=== PATIENT | male | born 1950 | race Caucasian/White ===

== ENCOUNTER 2017-06-29 19:09 | Inpatient (IN) | payer OTHER ==
--- NOTE | 2017-06-29 19:19 | EDPHY ---
H & P Stated Complaint: Chest Pressure, SOB, Fatigue Time Seen by Provider: 06/29/17 19:19 HPI/ROS: HPI CHIEF COMPLAINT: Shortness of breath, dyspnea on exertion, PND, bilateral lower extremity swelling HISTORY OF PRESENT ILLNESS: Patient is a 67-year-old male, he has a history of aortic valve replacement, additionally he smokes a pack of tobacco per day, presents emergency room with shortness of breath bilateral lower extremity swelling, dyspnea on exertion, PND over the past 5 days. Progressively getting worse. He denies fever. Denies productive cough. He states when he goes to walk up stairs or walk longer than 50 ft he gets profoundly dyspneic. No pleuritic pain. No history of DVT or PE. No history of ACS. Patient denies any significant pain in his chest but does complain of some chest pressure intermittently. Past Medical History: Aortic valve. Tobacco use. Past Surgical History: Aortic valve replacement Social History: 1 pack per day. Denies other illicit drugs or alcohol. Family History: Noncontributory ROS REVIEW OF SYSTEMS: A comprehensive 10 point review of systems is otherwise negative aside from elements mentioned in the history of present illness. Exam Constitutional appears well nontoxic no acute distress, triage nursing summary reviewed, vital signs reviewed, awake/alert. Eyes normal conjunctivae and sclera, EOMI, PERRLA. HENT normal inspection, atraumatic, moist mucus membranes, no epistaxis, neck supple/ no meningismus, no raccoon eyes. Respiratory clear to auscultation bilaterally, normal breath sounds, no respiratory distress, no wheezing. Cardiovascular no murmur appreciated. rate normal, regular rhythm, no murmur, no edema, distal pulses normal. Gastrointestinal soft, non-tender, no rebound, no guarding, normal bowel sounds, no distension, no pulsatile mass. Genitourinary no CVA tenderness. Musculoskeletal bilateral lower extremity pitting edema to the knees, symmetrical, no midline vertebral tenderness, full range of motion, no calf swelling, no tenderness of extremities, no meningismus, good pulses, neurovascularly intact. Skin pink, warm, & dry, no rash, skin atraumatic. Neurologic awake, alert and oriented x 3, AAOx3, moves all 4 extremities equally, motor intact, sensory intact, CN II-XII intact, normal cerebellar, normal vision, normal speech. Psychiatric normal mood/affect. Heme/Lymph/Immune no lymphadenopathy. Differential diagnosis includes but is not limited to: ACS, atypical chest pain , pneumothorax, pneumonia, pulmonary embolism, aortic dissection, congestive heart failure, tumor, musculoskeletal pain, esophageal pain, GERD, peptic ulcer disease, pancreatitis Medical Decision Making: Plan for this patient full quality assurance monitor IV establishment obtain EKG, troponin, rule out acute coronary syndrome, low suspicion for congestive heart failure given symptoms. Check for PE. Re-evaluation: EKG interpretation by me on record in [employer] system. Impression time of EKG 1923, sinus rhythm rate of 89 right bundle-branch block present. Abnormal T -wave inversions V1 V2 V3 no ST elevation. When I compare this EKG to his old EKG dated 07/12/2013 is change. The right bundle-branch block is new. The T- wave abnormalities are new. There is no ST elevation on this EKG. Patient noted have a positive D-dimer in the setting of shortness of breath will proceed with CT angiogram of chest rule out PE. Additionally the BNP is acutely elevated consistent most likely heart failure. Will proceed with IV Lasix 40 mg. Troponin noted to be negative. Full-dose aspirin given. 2034: Patient's CT scan angiogram of the chest shows no evidence of PE but there is bilateral pleural effusions, lung nodules noted and cardiomegaly consistent with most likely decompensated heart failure. Updated the patient. I have ordered the patient IV Lasix. Patient need to be admitted to the hospitalist service for decompensated heart failure. 2035: Currently at this time patient is hemodynamically stable no acute distress. No chest pain. Updated the patient. Spoke with the hospitalist service agrees to admit the patient. Dr. Terrazas. Source: Patient - Personal History Current Tetanus Diphtheria and Acellular Pertussis (TDAP): Yes - Medical/Surgical History Hx Asthma: No Hx Chronic Respiratory Disease: No Hx Diabetes: No Hx Cardiac Disease: Yes Hx Renal Disease: No Hx Cirrhosis: No Hx Alcoholism: No Hx HIV/AIDS: No Hx Splenectomy or Spleen Trauma: No Other PMH: OPEN HEART 2009 AORTIC VALVE REPLACEMENT (ANIMAL VALVE), Anxiety, Chronic Back Pain - Social History Smoking Status: Current every day smoker Constitutional: Initial Vital Signs Temperature (C) 36.7 C 06/29/17 19:13 Heart Rate 90 06/29/17 19:13 Respiratory Rate 18 06/29/17 19:13 Blood Pressure 102/72 06/29/17 19:13 O2 Sat (%) 89 L 06/29/17 19:13 O2 Delivery Mode Room Air O2 (L/minute) 2 Allergies/Adverse Reactions: procaine [Procaine] Allergy (Severe, Verified 07/27/13 17:28) Other-Enter Comments Home Medications: Medication Instructions Recorded Ascorbic Acid [Vitamin C 500 mg 500 mg PO DAILY 07/12/13 (OTC)] Aspirin [Aspirin 81mg (OTC)] 81 mg PO DAILY 07/12/13 Herbals/Supplements -Info Only 1 ea PO DAILY 07/12/13 Multivitamins [Tab-A-Clotilde] 1 tab PO DAILY 07/12/13 Simvastatin [Zocor 20 mg (RX)] 40 mg PO HS 07/12/13 rOPINIRole HCL [Requip 2mg (RX)] 4 mg PO HS 07/12/13 clonazePAM [klonoPIN (*)] 1 mg PO TID 06/29/17 oxyCODONE HCL/ACETAMINOPHEN 1 each PO Q6 PRN 06/29/17 [Percocet 10-325 mg Tablet] Medical Decision Making - Data Points Laboratory Results: Laboratory Results 06/29/17 19:29 06/29/17 19:29 Medications Given: Aspirin (Aspirin) 81 mg PO DAILY [facility] Stop: 12/27/17 08:59 Last Admin: 07/01/17 09:05 Dose: 81 mg Atorvastatin Calcium (Lipitor) 10 mg PO DAILY [facility] Stop: 12/27/17 08:59 Last Admin: 07/01/17 09:05 Dose: 10 mg Enoxaparin Sodium (Lovenox) 40 mg SC DAILY [facility] Stop: 12/27/17 08:59 Last Admin: 07/01/17 07:59 Dose: Not Given Furosemide (Lasix Injection) 40 mg IVP BIDDIUR [facility] Stop: 12/27/17 14:59 Last Admin: 07/01/17 15:15 Dose: Not Given Ketorolac Tromethamine (Toradol) 15 mg IVP Q6HRS [facility] Stop: 07/05/17 11:59 Last Admin: 07/01/17 14:39 Dose: 15 mg Morphine Sulfate (Morphine Ir) 15 mg PO Q4HRS PRN PRN Reason: Pain, Severe Able to Take PO Stop: 07/10/17 10:27 Last Admin: 07/01/17 13:30 Dose: 15 mg Oxycodone/Acetaminophen (Percocet 5/325) 1 tab PO Q6HRS PRN PRN Reason: Pain, Severe Able to Take PO Stop: 07/10/17 00:00 Last Admin: 07/01/17 16:24 Dose: 1 tab Ropinirole HCl (Requip) 4 mg PO HS AVA Stop: 12/26/17 23:44 Last Admin: 06/30/17 21:43 Dose: 4 mg Discontinued Medications Aspirin Buffered (Aspirin Ec) 325 mg PO EDNOW ONE Stop: 06/29/17 19:54 Last Admin: 06/29/17 20:40 Dose: 325 mg Diazepam (Valium) 5 mg PO ONCALL ONE Stop: 07/01/17 06:01 Last Admin: 07/01/17 09:43 Dose: Not Given Diazepam (Valium) 5 mg PO ONCALL ONE Stop: 07/01/17 09:46 Last Admin: 07/01/17 09:44 Dose: Not Given Diphenhydramine HCl (Benadryl) 25 mg PO ONCALL ONE Stop: 07/01/17 06:01 Last Admin: 07/01/17 09:43 Dose: Not Given Diphenhydramine HCl (Benadryl) 25 mg PO ONCALL ONE Stop: 07/01/17 09:46 Last Admin: 07/01/17 09:57 Dose: 25 mg Famotidine (Pepcid) 20 mg PO ONCALL ONE Stop: 07/01/17 06:01 Last Admin: 07/01/17 09:43 Dose: Not Given Famotidine (Pepcid) 20 mg PO ONCALL ONE Stop: 07/01/17 09:46 Last Admin: 07/01/17 09:57 Dose: 20 mg Furosemide (Lasix Injection) 40 mg IVP EDNOW ONE Stop: 06/29/17 20:06 Last Admin: 06/29/17 20:40 Dose: 40 mg Furosemide (Lasix Injection) 20 mg IVP BID AVA Stop: 12/27/17 08:59 Last Admin: 06/30/17 10:25 Dose: 20 mg Sodium Chloride (Ns) 1,000 mls @ 0 mls/hr IV ONCALL ONE PRN Reason: TKO Stop: 07/01/17 06:01 Last Admin: 07/01/17 09:47 Dose: Not Given Departure - Departure Disposition: [facility] Inpatient Acute Clinical Impression: Acute decompensated heart failure, Lung nodule Condition: Good
--- NOTE | 2017-06-29 19:25 | CPEKG ---
Heart Rate: 89 RR Interval: 674 P-R Interval: 148 QRSD Interval: 146 QT Interval: 432 QTC Interval: 526 P [place]: 53 QRS [place]: 16 T Wave [place]: 92 EKG Severity - ABNORMAL ECG - EKG Impression: SINUS RHYTHM EKG Impression: PROBABLE LEFT ATRIAL ABNORMALITY EKG Impression: RIGHT BUNDLE BRANCH BLOCK Electronically Signed By: Chema Brandt 29-Jun-2017 23:44:44
[2017-06-29 19:37] LABS: PLATELET COUNT 151 10^3/uL (150-400)
[2017-06-29 19:47] LABS: INR 1.13 (0.83-1.16); PROTIME(PATIENT) 14.7 SEC (12.0-15.0)
[2017-06-29 19:48] LABS: CREATINE KINASE 160 IU/L (0-224)
[2017-06-29] MEDS ORDERED: ASPIRIN EC 325 MG TAB PO ONE (19:53)
[2017-06-29] MEDS ORDERED: FUROSEMIDE 40 MG/4 ML VIAL IVP ONE (20:05)
[2017-06-29] MEDS ORDERED: IOPAMIDOL (ISOVUE 370) 100 ML BTL IV ONE (20:09)
[2017-06-29] MEDS ORDERED: ACETAMINOPHEN 325 MG TAB PO PRN (22:18)
[2017-06-29] MEDS ORDERED: ONDANSETRON 4 MG/2 ML VIAL IVP PRN (22:18)
[2017-06-29] MEDS ORDERED: ONDANSETRON DISINTEGRATING 4 MG TAB PO PRN (22:18)
[2017-06-29] MEDS ORDERED: clonazePAM 1 MG TAB PO PRN (23:51)
[2017-06-30] MEDS: OXYCODONE/APAP 5/325 TAB PO PRN (00:16)
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
[2017-06-30 04:32] LABS: PLATELET COUNT 138 10^3/uL (150-400)
[2017-06-30] MEDS ORDERED: FUROSEMIDE 20 MG/2 ML VIAL IVP SCH ×3 (09:00→15:00)
[2017-06-30] MEDS: ASPIRIN 81 MG CHEWABLE TAB PO SCH (09:42)
[2017-06-30] MEDS: ATORVASTATIN CALCIUM 10 MG TAB PO SCH (09:42)
[2017-06-30] MEDS: ENOXAPARIN 40 MG/0.4 ML SYR SC SCH (09:43)
--- NOTE | 2017-06-30 10:29 | HOSPPROG ---
Hospitalist Progress Note Assessment/Plan: 67 yo M w remote aortic valve replacement here w acute chf chf: echo pending to elucidate details further concern for valve malfunction continue diuresis pulm nodule: follow up no prior films in our system back pain: chronic asking for morphine amenable to trial of toradol prn po morphine I made it clear I will not be prescribing this as outpt proph: lmwh dispo: inpt Subjective: tele: no events (interp by me). case d/w dr dobbs. cxr w acute chf (interp by me) Objective: Vital Signs Temp Pulse Resp BP Pulse Ox 36.6 C 75 18 91/59 L 83 L 06/30/17 08:29 06/30/17 08:29 06/30/17 08:29 06/30/17 08:29 06/30/17 10:10 Laboratory Results 06/30/17 03:28 06/30/17 03:28 06/29/17 06/30/17 07/01/17 05:59 05:59 05:59 Intake Total 80 Output Total 300 Balance -220 PT 14.7 SEC (12.0-15.0) 06/29/17 19:29 INR 1.13 (0.83-1.16) 06/29/17 19:29 - Physical Exam Constitutional: no apparent distress, not in pain Eyes: PERRL, anicteric sclera Ears, Nose, Mouth, Throat: moist mucous membranes, hearing normal Cardiovascular: regular rate and rhythym, no murmur, rub, or gallop, systolic murmur, edema Respiratory: no respiratory distress, other (crackles bottom third of lungs) Gastrointestinal: normoactive bowel sounds, soft, non-tender abdomen Genitourinary: no bladder fullness, No prado in urethra Skin: warm Musculoskeletal: full muscle strength Neurologic: AAOx3 Psychiatric: interacting appropriately ICD10 Worksheet Patient Problems: Problems Problem Status Onset Acute decompensated heart failure Acute Lung nodule Acute
--- NOTE | 2017-06-30 10:40 | PDMN ---
Medical Necessity Medical necessity: est los>2mn for acute CHF with 5 days of progressive fatigue , COOLEY, and LE edema; admit for IV diuresis, I&O, TTE,and tele; comorbid s/ p AVR, CAD s/p CABG, and chronic pain; per order and H&P 06/29/17
[2017-06-30] MEDS: KETOROLAC 15 MG/1 ML SDV IVP SCH ×2 (11:47→17:26)
--- NOTE | 2017-06-30 12:20 | ASMTCAGE ---
CAGE Do you feel you ought to Answers: No cut down on your drinking or drug use? Do people annoy you by Answers: Yes criticizing your drinking or drug use? Do you feel guilty about Answers: No your drinking or drug use? Do you drink or use drugs Answers: No first thing in the morning ([employer])? Additional Comments "couple" vodka tonics per day (2-4 oz of vodka per drink). Binge drinking once or twice a month. See case management note Date Signed: 06/30/2017 12:19 PM Electronically Signed By:Alta Dover RN
--- NOTE | 2017-06-30 12:28 | ECHO ---
[email or web address] [address] [address] Main: [phone] Fax: [email or web address] Echocardiogram Name: NADEEM SANTIAGO MR#: [id number] Study Date: 06/30/2017 Study Time: 06:35 AM Date of : 1950 Age: 67 year(s) Height: 177.8 cm (70 in.) Weight: 79.83 kg (176 lb.) BSA: 1.98 m2 Gender: Male Examination: Echo Indication: chf Image Quality: Adequate Contrast: Requested by: Truong Maria BP: 91 mmHg/59 mmHg Heart Rate: Rhythm: Indication: chf Procedure Staff Keyboard Action Assembler: Shreya Hightower RDCS Reading Physician: Jyoti Aguilar MD Requesting Provider: Conclusions: Normal size left ventricle. Mild to moderate LVH. Low normal left ventricular systolic function. EF is 52 %. Mild lateral wall hypokinesis. Normal size right ventricle. Normal RV function. The left atrium is moderately dilated. The right atrium is mildly dilated. Moderate mitral valve regurgitation is present. Bioprosthetic AVR is present. Mean gradient across the AVR is 80 mmHg; severe . Mild to moderate AR. Moderate tricuspid regurgitation is present. Right ventricular systolic pressure measures 53mmHg. Compared with 07/12/2013 LVH has progressed. LV systolic function is slightly lower. Lateral wall hypokinesis is now present. Severe bioprosthetic aortic stenosis is now present. Measurements: Chambers Valvular Assessment AV/MV Valvular Assessment TV/PV Normal Normal Normal Name Value Range Name Value Range Name Value Range Ao Ivanna (2D): 3.2 cm (1.4 cm-2.6 AV meanP mmHg ( - ) TR Vmax: 3.27 mm/s ( - ) cm) GELA (VTI): 0.5 cm ( - ) TR PGmax: 43 mmHg ( - ) IVSd (2D): 1.3 cm (0.6 cm-1.1 AR (PHT): 248 ms ( - ) syst. PAP: 53 mmHg ( - ) cm) MV E Vmax: 1.11 m/s ( - ) PV Vmax: 0.69 m/s (0.6 m/s-0.9 LVDd (2D): 5.3 cm (4.2 cm-5.9 MV A Vmax: 0.55 m/s ( - ) m/s) cm) MV E/A: 2.02 ( - ) PV PGmax: 2 mmHg ( - ) LVDs (2D): 4.2 cm (2.1 cm-4 cm) MV PHT: 0.046 s ( - ) MVA (PHT): 4.8 s ( - ) Patient: NADEEM SANTIAGO Study Date: 06/30/2017 Page 1 of 3 06:35 AM LVPWd (2D): 1.2 cm (0.6 cm-1 cm) LVOTd 2.0 cm 2.0 cm mm LVEF (BP): 52 % (>=55 %) RVDd(2D): 3.5 cm (1.9 cm-3.8 cmmm) Continued Measurements: Chambers Valvular Assessment AV/MV Valvular Assessment TV/PV Name Value Name Value Name Value LADs: 5.2 cm MV DecTime: 165 m/s CVP (est.): 10 mmHg LADs Lon.1 cm MV E' Septal: 0.05 m/s LA Area: 28.5 cm2 MV E/E' Septal: 21.50 LA Volume: 88 ml MV E/E' Lateral: 10.70 LA Volume Index: 44.4 ml/m2 MR ERO: 0.300 cm2 RA Area: 21.4 cm2 MR PISA radius: 9 mm MR Reg. Volume: 69 ml AR Vmax: 3.63 cm/s Additional Vessels Name Value Ao Ascendin.9 cm Inferior Vena Cava: 2.3 cm Findings: Left Ventricle: Normal size left ventricle. Mild to moderate LVH. Low normal left ventricular systolic function. EF is 52 %. Normal diastolic LV function. Mild lateral wall hypokinesis. Right Ventricle: Normal size right ventricle. Normal RV function. Left Atrium: The left atrium is moderately dilated. Right Atrium: The right atrium is mildly dilated. Mitral Valve: The mitral valve is normal in appearance. Moderate mitral valve regurgitation is present. No mitral stenosis is present. Aortic Valve: The prosthetic aortic valve function is restricted. The prosthetic aortic valve exhibits severely thickened cusps. The orifice motion of the prosthetic aortic valve is severely impaired. Severe prosthesis stenosis. mild to moderate prosthetic regurgitation. Bioprosthetic AVR is present. Mean gradient across the AVR is 80 mmHg; severe . Mild to moderate AR. Tricuspid Valve: The tricuspid valve is normal in appearance and function. Moderate tricuspid regurgitation is present. Right ventricular systolic pressure measures 53mmHg. Pulmonic Valve: The pulmonic valve is normal in appearance and function. There is no pulmonic regurgitation seen. Aorta: The aorta is normal. Normal size aortic root measuring 3.2 cm. Normal size ascending aorta measuring 2.9 cm. IVC: The IVC is dilated. Pericardium: No pericardial effusion. No pleural effusion. Patient: NADEEM SANTIAGO Study Date: 06/30/2017 Page 2 of 3 06:35 AM (No Signature Object) Patient: NADEEM SANTIAGO Study Date: 06/30/2017 Page 3 of 3 06:35 AM [id number]
--- NOTE | 2017-06-30 12:30 | ASMTCMCOM ---
CM Note CM Note Notes: 06/30/2017 Case Management Note Met w/ pt to complete the CAGE. Pt reports daughter feels his drinking is excessive but his sons do not. Pt feels 2 drinks a day are good for his heart. He refused resources for alcohol cessation stating that he drinks much less now than in the past and he keeps it in check. Pt lives with his girlfriend and 3 musicians. He is independent in ADL's. There are no case mangement d/c needs at this time. Transitional Care to follow. Case Management d/c poc: independent with follow up as directed. Case Management available if needs change. Date Signed: 06/30/2017 12:29 PM Electronically Signed By:Alta Dover RN
--- NOTE | 2017-06-30 15:31 | GCON ---
[f rep st] CONSULTATION CARDIOLOGY CONSULTATION DATE OF CONSULTATION: 06/30/2017 PRIMARY VOCAL MUSIC INSTRUCTOR: Nilo Alvarez MD CHIEF COMPLAINT: Aortic valve disease. HISTORY: The patient is a 67-year-old male with a history of bicuspid aortic valve. In 2009, he had a 23 mm bovine aortic valve bioprosthesis and repair of ascending aortic aneurysm with a 26 mm Hemas hield graft. This was with Dr. Manan Arnold at [facility]. He also has a history of tobacco abuse, reportedly quit 2 weeks ago, left upper lobe lung nodule, and dyslipidemia. He was admitted on June 29 with progressive dyspnea, weight gain, lower extremity edema, and chest pr essure. In the ER, he was found to be hypoxic and in florid heart failure. He has diuresed well ove rnight and feels quite a bit better this morning. He has not had syncope. He states that his heart has been racing. REVIEW OF SYSTEMS: A full 10-point review of systems is performed, is negative except that which is outlined in history of present illness. PAST MEDICAL HISTORY: 1. Bioprosthetic aortic valve replacement and ascending aortic aneurysm repair in 2011 for history o f bicuspid aortic valve. 2. Tobacco abuse. 3. Lung nodule. 4. Dyslipidemia. OUTPATIENT MEDICATIONS: Vitamin C, aspirin 81 mg daily, herbal supplements, Klonopin, multivitamin, Percocet, Requip, and simvastatin. SOCIAL HISTORY: The patient quit smoking 2 weeks ago. He drinks 2 alcoholic drinks nightly. He den ies ongoing drug use, but has a past history of cocaine and marijuana use. FAMILY HISTORY: There is coronary disease in his family. PHYSICAL EXAM: VITAL SIGNS: Blood pressure 116/66, heart rate 80, respiratory rate is 18, oxygen sa turation 91% on 2 L nasal cannula. He is afebrile. IN GENERAL: Well-appearing older male in no acut e distress. HEENT: Sclerae clear and free of jaundice. Mucous membranes are moist. CARDIOVASCULAR: JVP is approximately 12 cm water with positive hepatojugular reflux. Regular rate and rhythm with harshly peaking systolic ejection murmur heard throughout the precordium with radiation to the caroti ds. No gallop or rub. LUNGS: Rales at the right base. No wheezes or rhonchi. ABDOMEN: Soft, nont priscilla, nondistended, without bruits, masses, or hepatosplenomegaly. EXTREMITIES: Warm and well perf used. Stigmata of chronic venous stasis. Trace to 1+ bilateral ankle edema. NEURO: Alert and orie nted x3 without gross focal neurologic deficits. Appropriate mood and affect. LABORATORY DATA: White count 3.9, hematocrit 42, and platelets are 138, and MCV is 108.5. D-dimer 0 .74. INR 1.13. Sodium 141, potassium 3.7, chloride 102, bicarb 29, BUN 14, creatinine 0.9, glucose 102, calcium 8.3, phosphorus 5. BNP is 9580. LFTs are normal. Troponin is negative x1. EKG reviewed by me: Sinus rhythm. Left atrial abnormality. Right bundle branch block. Anterior T-w ave inversions. Chest x-ray reviewed by me shows CHF. Chest CT: No pulmonary embolism. A 1.2 cm left upper lobe nodule. Small bilateral pleural effusions . Anterior mediastinal fluid collection contiguous with sternotomy defect which is not healed. Echocardiogram reviewed by me: Low normal LV systolic function with mild lateral hypokinesis. Criti evelyn bioprosthetic aortic stenosis with a mean gradient across the bioprosthetic aortic valve of 80 mm Hg. Mild to moderate aortic regurgitation. Moderate mitral regurgitation and moderate tricuspid reg urgitation with estimated pulmonary pressure 53 mmHg. ASSESSMENT AND PLAN: A 67-year-old male with a history of bicuspid aortic valve status post bioprost hetic aortic valve and ascending aortic aneurysm repair in 2009. He is now admitted with heart failu re and found to have severe bioprosthetic aortic stenosis as well as moderate mitral regurgitation an d tricuspid regurgitation. He is clinically improved with intravenous diuresis. 1. Aortic valve disease: He appears to have degeneration of his bioprosthetic aortic valve. No cli nical evidence of endocarditis. Will ask Dr. Davey Bello to consult about redo aortic valve placemen t. Would be concerned about the fact that his sternotomy is not healed. If he is not a surgical can didate, will discuss with Dr. Acosta about his candidacy for transcatheter aortic valve replacement. Continue intravenous diuresis, but avoid intravenous diuresis in the setting of his aortic stenosis . 2. Lung nodule: The patient reports that he has had a lung nodule for quite some time. However, gi jeanette his tobacco history, this would be concerning for malignancy. This will require further evaluatio n. 3. History of tobacco abuse: Patient reports quitting about 2 weeks ago. 4. Dyslipidemia: Continue statin. Thank you for allowing us to participate in Mr. Arguello' care. Will follow with you. /[id number]/MODL
[2017-06-30] MEDS: FUROSEMIDE 40 MG/4 ML VIAL IVP SCH (16:04)
[2017-06-30] MEDS ORDERED: FAMOTIDINE 20 MG TAB PO ONE (16:50)
[2017-06-30] MEDS ORDERED: DIAZEPAM 5 MG TAB PO ONE (16:50)
[2017-06-30] MEDS ORDERED: diphenhydrAMINE 25 MG CAP PO ONE (16:50)
[2017-06-30] MEDS ORDERED: NS 1,000 ML IV ONE (16:50)
[2017-06-30] MEDS ORDERED: NS 1,000 ML IV SCH (17:00)
[2017-07-01] MEDS: KETOROLAC 15 MG/1 ML SDV IVP SCH ×4 (00:22→17:36)
[2017-07-01 04:54] LABS: PLATELET COUNT 141 10^3/uL (150-400)
[2017-07-01 04:56] LABS: INR 1.12 (0.83-1.16); PROTIME(PATIENT) 14.6 SEC (12.0-15.0)
[2017-07-01] MEDS ORDERED: DIAZEPAM 5 MG TAB PO ONE ×2 (06:00→09:45)
[2017-07-01] MEDS ORDERED: diphenhydrAMINE 25 MG CAP PO ONE ×2 (06:00→09:45)
[2017-07-01] MEDS ORDERED: FAMOTIDINE 20 MG TAB PO ONE ×2 (06:00→09:45)
[2017-07-01] MEDS ORDERED: NS 1,000 ML IV ONE (06:00)
[2017-07-01] MEDS: ENOXAPARIN 40 MG/0.4 ML SYR SC SCH (07:59)
[2017-07-01] MEDS: ASPIRIN 81 MG CHEWABLE TAB PO SCH (09:05)
[2017-07-01] MEDS: ATORVASTATIN CALCIUM 10 MG TAB PO SCH (09:05)
[2017-07-01] MEDS: FUROSEMIDE 40 MG/4 ML VIAL IVP SCH ×2 (09:15→15:15)
--- NOTE | 2017-07-01 10:39 | PDANEPAE ---
ANE Past Medical History - Pulmonary History Hx Oxygen in Use at Home: No Hx Sleep Apnea: No - Endocrine History Hx Diabetes: No - Chronic Pain History Chronic Pain: Yes ANE Review of Systems Review of Systems: ANE Patient History - Allergies Allergies/Adverse Reactions: procaine [Procaine] Allergy (Severe, Verified 07/27/13 17:28) Other-Enter Comments - Home Medications Home Medications: Ascorbic Acid [Vitamin C 500 mg (OTC)] 500 mg PO DAILY 07/12/13 [Last Taken ] Aspirin [Aspirin 81mg (OTC)] 81 mg PO DAILY 07/12/13 [Last Taken 06/29/17] Herbals/Supplements -Info Only 1 ea PO DAILY 07/12/13 [Last Taken 07/11/13] Multivitamins [Tab-A-Clotilde] 1 tab PO DAILY 07/12/13 [Last Taken 07/11/13] Simvastatin [Zocor 20 mg (RX)] 40 mg PO HS 07/12/13 [Last Taken 06/28/17] rOPINIRole HCL [Requip 2mg (RX)] 4 mg PO HS 07/12/13 [Last Taken 06/28/17] clonazePAM [klonoPIN (*)] 1 mg PO TID 06/29/17 [Last Taken 06/29/17 07:00] oxyCODONE HCL/ACETAMINOPHEN [Percocet 10-325 mg Tablet] 1 each PO Q6 PRN [Last Taken 06/28/17] - Smoking Hx Smoking Status: Current every day smoker ANE Labs/Vital Signs - Labs Result Diagrams: 07/01/17 03:55 07/01/17 03:55 - Vital Signs Blood Pressure: 82/61 Heart Rate: 84 Respiratory Rate: 15 O2 Sat (%): 87 Height: 177.8 cm Weight: 77.3 kg ANE Physical Exam - Airway Neck exam: FROM Mallampati Score: Class 2 Mouth exam: normal dental/mouth exam - Pulmonary Pulmonary: no respiratory distress - Cardiovascular Cardiovascular: regular rate and rhythym - ASA Status ASA Status: II ANE Anesthesia Plan Total IV Anesthesia: Yes
[2017-07-01] MEDS ORDERED: fentaNYL 100 MCG/2 ML INJ ONE ×2 (10:44→11:03)
[2017-07-01] MEDS ORDERED: PROPOFOL 200 MG/20 ML VIAL ONE (10:44)
[2017-07-01] MEDS ORDERED: LIDOCAINE 2% 5 ML SDV ONE (10:45)
--- NOTE | 2017-07-01 10:49 | PDHPUP ---
History & Physical Update H&P update statement: This history and physical update is based on an assessment of the patient which was completed after admission or registration (within 24 hours), but prior to the surgery/procedure. H&P update: H&P reviewed & patient examined, no change in patient's condition since H&P completed (Please refer to my consult note dated 06/30/2017)
[2017-07-01] MEDS ORDERED: LIDOCAINE 1% 300 MG/30 ML SDV ONE (11:02)
[2017-07-01] MEDS ORDERED: IOPAMIDOL (ISOVUE-370) 150 ML BTL IV ONE (11:03)
[2017-07-01] MEDS ORDERED: MIDAZOLAM 2 MG/2 ML VIAL ONE (11:03)
[2017-07-01] MEDS ORDERED: ATROPINE SULFATE 1 MG/10 ML SYR ONE (11:09)
[2017-07-01] MEDS ORDERED: NALOXONE HCL 0.4 MG/ML INJ IVP PRN (11:28)
[2017-07-01] MEDS ORDERED: ALBUTEROL 3 ML DEYVIAL IH PRN (11:28)
--- NOTE | 2017-07-01 11:29 | POSTANESTH ---
Post Anesthetic Evaluation Cardiovascular Status: Similar to Pre-Op Cond Respiratory Status: Similar to Pre-op Cond. Level of Consciousness/Mental Status: Mildly Sleepy, Arousable Pain Control: Adequate, Prn Tx Ordered Nausea/Vomiting Control: Adequate, Prn Tx Ordered Complications Possibly Related to Anesthesia: None Noted
[2017-07-01] MEDS ORDERED: ATROPINE SULFATE 1 MG/10 ML SYR IVP PRN (12:49)
--- NOTE | 2017-07-01 12:55 | PDDXCAT ---
Diagnostic Cath Note - . Date: 07/01/17 Nursing Education Consultant: Lauren Indication: other (Bioprosthetic aortic valve degeneration with critical aortic stenosis and heart failure. Pre procedural planning.) - Procedure Access: left groin Procedure: left heart catheterization, coronary angiography, right heart catheterization, other (Abdominal aortography) - Materials Left Heart Cath materials: JL4.0, pigtail, other (AL1) Right Heart Cath materials: PWP catheter - Findings-Left Heart Catheterization LM: Normal and bifurcates into the LAD and left circumflex LAD: The LAD reaches the apex. There are 2 diagonals. There is no flow- limiting disease in the LAD or its branches. LCX: 2 small obtuse marginals. No significant disease in the left circumflex or marginal branches. RCA: This vessel is dominant. No significant disease. LVEF: The severely degenerated bioprosthetic valve was not crossed. We did perform abdominal aortography showing minimal atherosclerotic disease in moderately large bilateral iliac vessels. - Findings-Right Heart Catheterization RA: RA pressure is 11 RV: 48/7 PA: 51/26 with a mean of 36 PAOP: 22 with V-wave to 29 AO: 98/52 CO: 5 liters/minute CI: 2.6 liters/minute per meter squared Complications: None Estimated blood loss: <50ml Closure method: manual pressure Assessment: No significant coronary disease in this right-dominant system. Severe aortic stenosis related to degeneration of the patient's bioprosthetic aortic valve. Moderate mitral regurgitation and [id number]-gh-[id number] tricuspid regurgitation. Mild pulmonary hypertension. Plan: Case discussed with Dr. Davey Bello and Dr. Hari Acosta. The patient seems to be an appropriate candidate for evaluation for TAVR. He will have the records it CT scans and carotid ultrasound today. He will require 6 hr of bedrest because he had a manual sheath pull. Would continue diuresis as blood pressure allows. Patient Problems: Problems Problem Status Onset Acute decompensated heart failure Acute Lung nodule Acute
[2017-07-01] MEDS ORDERED: IOPAMIDOL (ISOVUE 370) 100 ML BTL IV ONE (15:13)
--- NOTE | 2017-07-01 16:03 | GCON ---
[f rep st] CONSULTATION TAVR CONSULT. CHIEF COMPLAINT: Shortness of breath. HISTORY OF PRESENT ILLNESS: This is a 67-year-old male with history of prior bioprosthetic AVR and a scending aortic repair performed approximately 9 years ago. The patient had what appeared to be a 23 magna bioprosthetic AVR replacement. The patient was admitted to [facility] with acut e onset of shortness of breath. The patient was found to have critical bioprosthetic aortic valve de generation with critical stenosis across the valve. The patient was diuresed and has responded effec tively to diuresis. The patient, in his workup, did also have a CT scan of the chest, which did show an isolated lung nodule, as well as what appeared to be a seroma from his prior sternotomy. The patient is currently feeling better after aggressive diuresis and underwent cardiac catheterizati on today by Dr. Aguilar, which showed patent bilateral coronary arteries with patent aortoiliac femoral vessels. PAST MEDICAL HISTORY: Significant for prior bioprosthetic aortic valve replacement with ascending ao rtic repair. HOME MEDICATIONS: The patient is taking vitamin C and aspirin, herbal supplements, Klonopin, multivi tamins, Percocet, Requip, and simvastatin. SOCIAL HISTORY: Patient is a current smoker. Drinks 2 alcoholic drinks daily. Has had a history of cocaine and marijuana use but no current drug use. FAMILY HISTORY: Noncontributory. REVIEW OF SYSTEMS: Patient currently denies any vision changes. No headache. No palpitations. No neck pain. No jaw pain. No chest pain. No abdominal pain. No shortness of breath currently. No l ower extremity pain. No neurologic issues. PHYSICAL EXAMINATION: VITAL SIGNS: Patient is alert and afebrile. Blood pressure is currently 100/ 70 with a heart rate of 64, respirations 12, sat 95% on 2 L nasal cannula. HEENT: Pupils equal and reactive to light and accommodation. Extraocular movements intact. CARDIOVASCULAR: Regular rhythm, S1, S2. There is a 3/6 harsh systolic murmur heard throughout the precordium. LUNGS: Clear to aus cultation bilaterally. ABDOMEN: Soft, nontender. No guarding. EXTREMITIES: No clubbing, no cyano sis, no edema. NEUROLOGIC: Alert and oriented x3. LABORATORY VALUES: Currently show a white cell of 4.2, hemoglobin 14.1, hematocrit 41, platelet coun t of 141. Sodium 143, potassium 3.8, chloride 104, bicarb 31, BUN 21, creatinine 0.8. ASSESSMENT AND PLAN: Shortness of breath/heart failure/bioprosthetic aortic valve replacement degene ration. At this time, we have discussed this case extensively with Dr. Bello from CT Surgery, as wel l as Dr. Aguilar. The patient is very hesitant to undergo repeat open heart surgery if it can be avoide d. However, given his critical bioprosthetic AVR, I feel that an intervention would be needed at thi s point given his current seroma at his prior mediastinal site would potentially make him a hostile c hest to perform an open redo AVR. Dr. Bello and myself agree that TAVR cydzg-rc-iqtce would probably be best suited for the patient, given these aforementioned issues. We will have a second mandatory CT surgery consult first prior to moving forward with any TAVR procedure. I have explained the TAVR procedure to the patient, including describing his risks/possible complications including bleeding, s troke, infection, and possible , and the patient would like to proceed if he is a candidate. We will obtain CTs of the chest, abdomen, pelvis, as well as carotid ultrasound. Of note, the patient did have a lung nodule on his CT scan that was performed yesterday. This lung nodule will be evaluat ed thoroughly once we have addressed his aortic stenosis issues, which we hope to rectify within a we ek. /[id number]/MODL
[2017-07-01] MEDS: OXYCODONE/APAP 5/325 TAB PO PRN (16:24)
--- NOTE | 2017-07-01 16:24 | HOSPPROG ---
Hospitalist Progress Note Assessment/Plan: 67 yo M w remote aortic valve replacement here w acute chf acute systolic heart failure: secondary to valve degneration candidate for TAVR pulm nodule: this appears to be the same nodule from [address] will follow up w radiology 07/02 back pain: chronic asking for morphine amenable to trial of toradol prn po morphine I made it clear I will not be prescribing this as outpt proph: lmwh dispo: inpt Subjective: case d/w dr dobbs. cath w no flow limiting stenoses Objective: Vital Signs Temp Pulse Resp BP Pulse Ox 36.5 C 79 12 92/56 L 95 07/01/17 14:37 07/01/17 14:37 07/01/17 14:37 07/01/17 14:37 07/01/17 14:37 Laboratory Results 07/01/17 03:55 07/01/17 03:55 06/30/17 07/01/17 07/02/17 05:59 05:59 05:59 Intake Total 80 250 Output Total 300 1500 Balance -220 -1250 PT 14.6 SEC (12.0-15.0) 07/01/17 03:55 INR 1.12 (0.83-1.16) 07/01/17 03:55 - Physical Exam Constitutional: no apparent distress, appears nourished Eyes: PERRL, anicteric sclera Ears, Nose, Mouth, Throat: moist mucous membranes, hearing normal Cardiovascular: regular rate and rhythym, systolic murmur, tachycardia Respiratory: no respiratory distress, no rales or rhonchi Gastrointestinal: normoactive bowel sounds, soft, non-tender abdomen Genitourinary: no bladder fullness, No prado in urethra Skin: warm, normal color Musculoskeletal: full muscle strength Neurologic: AAOx3 ICD10 Worksheet Patient Problems: Problems Problem Status Onset Acute decompensated heart failure Acute Lung nodule Acute
--- NOTE | 2017-07-01 16:38 | ECHO ---
[email or web address] [address] [address] Main: [phone] Fax: Transesophageal Echocardiography Name: NADEEM SANTIAGO MR#: [id number] Study Date: 07/01/2017 Study Time: 09:02 AM Date of : 1950 Age: 67 year(s) Height: ( ) Weight: ( ) BSA: Gender: Male Examination: POLI Indication: Image Quality: Adequate Contrast: Requested by: Jyoti Aguilar Heart Rate: Rhythm: BP: / Procedure Staff Regulatory Process Manager: Shreya Hightower RDCS Reading Physician: Jyoti Aguilar MD Requesting Provider: POLI Exam Details Patient Consent: Risks, alternatives of procedure explained to patient, informed consent obtained. Conclusions: Normal size left ventricle. Normal global systolic LV function. The ejection fraction is estimated to be 50-55 %. No regional wall motion abnormality. The left atrium is moderately dilated. An agitated saline study was performed and was negative for intracardiac shunting. No thrombus in left appendage. The right atrium is mildly dilated. Moderate mitral valve regurgitation is present. The aortic valve is a bioprosthesis. The prosthetic aortic valve function is restricted. The prosthetic aortic valve exhibits severely thickened cusps. Severe prosthesis stenosis. mild to moderate prosthetic regurgitation. Moderate tricuspid regurgitation is present. Measurements: Chambers Valvular Assessment AV/MV Valvular Assessment TV/PV Normal Normal Normal Name Value Range Name Value Range Name Value Range EF Range: 50-55 % Additional Measurements: Patient: NADEEM SANTIAGO Study Date: 07/01/2017 Page 1 of 2 09:02 AM Valvular Assessment AV/MV Name Value MR ERO: 0.150 cm2 MR PISA radius: 6 mm MR Reg. Volume: 31 ml Findings: Left Ventricle: Normal size left ventricle. Normal global systolic LV function. The ejection fraction is estimated to be 50-55 %. No regional wall motion abnormality. Unable to assess diastolic dysfunction. Right Ventricle: Normal size right ventricle. Normal RV function. Left Atrium: The left atrium is moderately dilated. An agitated saline study was performed and was negative for intracardiac shunting. Left Atrial Appendage: No thrombus in left appendage. Right Atrium: The right atrium is mildly dilated. Mitral Valve: The mitral valve is normal in appearance and function. Moderate mitral valve regurgitation is present. No mitral stenosis is present. Aortic Valve: The aortic valve is a bioprosthesis. The prosthetic aortic valve function is restricted. The prosthetic aortic valve exhibits severely thickened cusps. The orifice motion of the prosthetic aortic valve is severely impaired. Severe prosthesis stenosis. mild to moderate prosthetic regurgitation. Tricuspid Valve: The tricuspid valve is normal in appearance and function. Moderate tricuspid regurgitation is present. Pulmonic Valve: The pulmonic valve is normal in appearance and function. There is no pulmonic regurgitation seen. Aorta: The aorta is normal. Pericardium: No pericardial effusion. No pleural effusion. l1n (No Signature Object) Patient: NADEEM SANTIAGO Study Date: 07/01/2017 Page 2 of 2 09:02 AM [id number]
--- NOTE | 2017-07-01 17:09 | GCON ---
[f rep st] CONSULTATION DATE OF CONSULTATION: 06/30/2017 IMPRESSION: 1. Critical prosthetic aortic stenosis with class 4 congestive heart failure. 2. At least moderate mitral insufficiency. 3. Moderate tricuspid insufficiency. 4. Chronic obstructive pulmonary disease. 5. 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 RECOMMENDATIONS: This gentleman has a rather complex picture. He underwent aortic valve replacement 9 years prior, now has severe prosthetic stenosis and a 23 mm bioprosthetic valve. We performed POLI to better define the significance of the mitral insufficiency and in fact it is moderate at most wit h moderate left atrial enlargement. The patient is adamantly opposed to repeat surgery and given his moderate mitral insufficiency and good ventricular function, I do not think it is unreasonable to of mickey him TAVR particularly since his aortic valve is 23 mm, which should give him a reasonable short a nd intermediate term result. Options otherwise are repeat sternotomy, replacing his aortic valve, re pair of his mitral and tricuspid. He also has an unconfirmed new mass in the left upper lobe which h as a 70% chance of being malignant. Given his cardiac status, I believe we should correct his cardia c function 1st. He would not tolerate any sort of diagnostic or therapeutic approach and I do not th ink needle biopsies or PET scans at this time are going to change what or how we approach him. He un derwent diagnostic left heart cath today and was shown to have no evidence of coronary disease and ag ain his ventricular function is preserved. This was discussed at length with the patient, Dr. Lauren grace nd Dr. Acosta who has agreed to participate and assist with the TAVR. CHIEF COMPLAINT: This is a 67-year-old gentleman, previous surgical AVR for bicuspid aortic stenosis , who now presents with weight gain, dyspnea on exertion and fatigue. He was noted to be in congesti ve heart failure. He was found to have high gradient across his prosthetic aortic valve. Please see separate echo. MEDICAL HISTORY: As stated. MEDICATIONS: On admission were ascorbic acid with aspirin, vitamins, simvastatin, lisinopril, clonaz epam, and oxycodone. SOCIAL HISTORY: He smokes at least 1-2 packs cigarettes for greater than 30 years. REVIEW OF SYSTEMS: Except for his dyspnea on exertion and fatigue, he is not currently complaining. PHYSICAL EXAMINATION: GENERAL: A slender 67-year-old gentleman, appears older than stated age. NEC K : Has transmitted bruits. HEART: Rate is regular with a murmur across the precordium. LUNGS: Sams ve basilar barfield and evidence of pleural effusion. ABDOMEN: Soft, nontender. Bowel sounds are acti ve. RECTAL AND GENITAL: Exam were deferred. Femoral pulses are 2+ and symmetrical. He has some 2+ peripheral edema and has responded nicely to diuretics. Please see chart for remainder of details. /[id number]/MODL
[2017-07-02] MEDS: KETOROLAC 15 MG/1 ML SDV IVP SCH ×3 (01:20→12:00)
[2017-07-02] MEDS: ATORVASTATIN CALCIUM 10 MG TAB PO SCH (08:11)
[2017-07-02] MEDS: ENOXAPARIN 40 MG/0.4 ML SYR SC SCH (08:11)
[2017-07-02] MEDS: ASPIRIN 81 MG CHEWABLE TAB PO SCH (08:11)
[2017-07-02 08:15] VITALS: BP 84/53
[2017-07-02] MEDS: FUROSEMIDE 40 MG/4 ML VIAL IVP SCH (09:01)
--- NOTE | 2017-07-02 12:29 | HOSPPROG ---
Hospitalist Progress Note Assessment/Plan: 67 yo M w remote aortic valve replacement here w acute chf acute systolic heart failure: secondary to valve degneration candidate for TAVR pulm nodule: stable from 2009. not cancer no further workup back pain: chronic asking for morphine amenable to trial of toradol prn po morphine I made it clear I will not be prescribing this as outpt proph: lmwh dispo: hometoday see dc summary > 30 minutes Subjective: case d/w dr dobbs Objective: Vital Signs Temp Pulse Resp BP Pulse Ox 36.7 C 85 18 84/53 L 77 L 07/02/17 08:14 07/02/17 08:14 07/02/17 08:14 07/02/17 08:14 07/02/17 08:39 Laboratory Results 07/01/17 03:55 07/01/17 03:55 07/01/17 07/02/17 07/03/17 05:59 05:59 05:59 Intake Total 250 1070 Output Total 1500 600 Balance -1250 470 PT 14.6 SEC (12.0-15.0) 07/01/17 03:55 INR 1.12 (0.83-1.16) 07/01/17 03:55 - Physical Exam Constitutional: no apparent distress, appears nourished Eyes: PERRL, anicteric sclera Ears, Nose, Mouth, Throat: moist mucous membranes, hearing normal Cardiovascular: regular rate and rhythym, no murmur, rub, or gallop, systolic murmur, edema Respiratory: no respiratory distress, no rales or rhonchi Gastrointestinal: normoactive bowel sounds Genitourinary: no bladder fullness Skin: warm, normal color Musculoskeletal: full muscle strength Neurologic: AAOx3 ICD10 Worksheet Patient Problems: Problems Problem Status Onset Acute decompensated heart failure Acute Lung nodule Acute
--- NOTE | 2017-07-02 12:31 | PDHOMEO2F ---
Home Oxygen Face to Face Home Orders: I certify that a physician or a nurse practitioner or physician's occupational therapy assistant has had a [id number] encounter with this patient on the date of this order due to the diagnosis listed, which relates to the primary reason the patient requires home oxygen. Alternative treatments have been tried, or considered, and deemed ineffective. It is anticipated that supplemental oxygen will result in improvement with treatment. Home oxygen qualifying diagnosis: congestive heart failure SpO2 on room air (%): 77 Frequency of home oxygen needed: continuous Home oxygen liters per minute: 2 Home oxygen delivery device: nasal cannula Concentrator: No E-tanks for mobility and back up: Yes If ordering portable O2, is the patient mobile in the home?: Yes I certify that, based on these findings, the home oxygen is medically necessary for this patient for the following length of time. Length of time home oxygen needed: 1 month
--- NOTE | 2017-07-02 13:52 | PDCARPN ---
Cardiology Progress Note Assessment/Plan: Assessment/plan: 67-year-old male with a bioprosthetic aortic valve replacement and ascending aortic aneurysm repair in 2009 for bicuspid aortic valve. 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 He has moderate mitral and moderate tricuspid regurgitation. Other history includes stable pulmonary nodule and tobacco abuse, recently quit. With he underwent POLI and coronary angiography on July 01 with no significant coronary disease. He was seen by Dr. Davey Bello and Dr. Acosta. Recommendations are for TAVR based on his surgical risk given that it would be a redo surgery. 1. Aortic stenosis related to degeneration of bioprosthetic aortic valve: Heart failure is improved but will not diurese further given his systolic blood pressures in the 80s. I explained to the patient that he is at risk for recurrent heart failure or even sudden . He understands this. He will be seen by Dr. Ness tomorrow in the office for a 2nd cardiac surgery opinion. He is tentatively scheduled for TAVR on July 06. 2. Pulmonary nodule: This has been stable over several years and does not require further evaluation. 3. Tobacco abuse: He recently quit and I encouraged him to remain abstinent. Patient is stable for discharge and will have close clinical follow-up as detailed above. Discussed in detail with Dr. Cyr, Dr. Bello, and Dr. Acosta. 07/02/17 13:52 Subjective: He is feeling quite a bit better. No dyspnea with slow walking. Still has persistent edema but it is improved compared with admission. He is not lightheaded. Reviewed/Discussed With: hospitalist Objective: Vital Signs (8 Hrs) Temp Pulse Resp BP Pulse Ox 07/02/17 12:00 67 07/02/17 08:39 77 L 07/02/17 08:14 36.7 C 85 18 84/53 L 92 Intake/Output (24 Hrs) 07/01/17 07/02/17 07/03/17 05:59 05:59 05:59 Intake Total 250 1070 Output Total 1500 600 Balance -1250 470 Intake: Oral (ml) 250 1070 IV Intake (ml) 0 Output: Urine (ml) 1500 600 Toilet 1500 600 Other: Weight 77.3 kg 78 kg Number of Voids Toilet 1 1 No acute distress. JVP 12 cm of water. Regular rate and rhythm with harsh systolic ejection murmur heard throughout the precordium. Lungs minimal rales bilaterally. 1+ bilateral ankle edema bilaterally Result Diagrams: 07/01/17 03:55 07/01/17 03:55 Telemetry: Sinus rhythm ICD10 Worksheet Patient Problems: Problems Problem Status Onset Acute decompensated heart failure Acute Lung nodule Acute
== END 2017-07-02 13:50 | disposition home or self-care (01) | DRG 286 ==
LOC: F2W 21:45 → OBSVTOIN 22:18
PROVIDERS: ADMIT Hospitalist; ATTEND Hospitalist
DX: T82.857A Stenosis of other cardiac prosthetic devices, implants and grafts, initial encounter (principal); T82.01XA Breakdown (mechanical) of heart valve prosthesis, initial encounter; I50.31 Acute diastolic (congestive) heart failure; R91.1 Solitary pulmonary nodule; I25.10 Atherosclerotic heart disease of native coronary artery without angina pectoris; M54.9 Dorsalgia, unspecified; E78.5 Hyperlipidemia, unspecified; F17.210 Nicotine dependence, cigarettes, uncomplicated; Z95.2 Presence of prosthetic heart valve; Z95.1 Presence of aortocoronary bypass graft
CPT/HCPCS: 96374; J0461; J1644; J1650; J1885; J1940; J2250; J2704; J3010; Q9967

== ENCOUNTER 2017-07-06 06:21 | Inpatient (IN) | payer OTHER, MEDICARE ==
[2017-07-06] MEDS ORDERED: ceFAZolin 2 GM/SWFI 2 GM/20 ML SYR IVP ONE (07:00)
[2017-07-06] MEDS ORDERED: IOPAMIDOL (ISOVUE-370) 150 ML BTL IV ONE (07:10)
[2017-07-06] MEDS ORDERED: MIDAZOLAM 2 MG/2 ML VIAL IVP ONE (07:15)
--- NOTE | 2017-07-06 07:18 | PDANEPAE ---
ANE History of Present Illness in bioprosthetic valve s/f TAVR ANE Past Medical History - Cardiovascular History Hx Hypertension: Yes Hx Arrhythmias: No Hx Chest Pain: No Hx Coronary Artery / Peripheral Vascular Disease: Yes Hx CHF / Valvular Disease: Yes - Pulmonary History Hx COPD: Yes Hx Oxygen in Use at Home: No Hx Sleep Apnea: No Pulmonary History Comment: was given O2 at D/C - Endocrine History Hx Diabetes: No - Chronic Pain History Chronic Pain: Yes ANE Review of Systems Review of Systems: - Exercise capacity METS (RN): 3 METS ANE Patient History - Allergies Allergies/Adverse Reactions: No Known Allergies Allergy (Unverified 07/06/17 07:08) - Home Medications Home medications: home medication list seen and reviewed Home Medications: Ascorbic Acid [Vitamin C 500 mg (*)] 500 mg PO DAILY 07/12/13 [Last Taken ] Aspirin [Aspirin 81mg (*)] 81 mg PO DAILY 07/12/13 [Last Taken 06/29/17] Herbals/Supplements -Info Only 1 ea PO DAILY 07/12/13 [Last Taken 07/11/13] Multivitamins [Multivitamin (*)] 1 tab PO DAILY 07/12/13 [Last Taken 07/11/13] Simvastatin [Zocor 20 mg] 40 mg PO HS 07/12/13 [Last Taken 06/28/17] rOPINIRole HCL [Requip 2mg (*)] 4 mg PO HS 07/12/13 [Last Taken 06/28/17] clonazePAM [klonoPIN (*)] 1 mg PO TID 06/29/17 [Last Taken 06/29/17 07:00] oxyCODONE HCL/ACETAMINOPHEN [Percocet 10-325 mg Tablet] 1 each PO Q6 PRN [Last Taken 06/28/17] - NPO status NPO Status: no food or drink >8 hours - Anes Hx Anes Hx: no prior problems - Smoking Hx Smoking Status: Current every day smoker - Alcohol Use Alcohol Use: Rarely ANE Labs/Vital Signs - Vital Signs Height: 177.8 cm Weight: 74.843 kg ANE Physical Exam - Airway Neck exam: FROM Mallampati Score: Class 2 Mouth exam: normal dental/mouth exam - Pulmonary Pulmonary: inspiratory crackles - Cardiovascular Cardiovascular: regular rate and rhythym - ASA Status ASA Status: III ANE Anesthesia Plan Anesthesia Plan: general endotracheal anesthesia
--- NOTE | 2017-07-06 07:24 | PDHPUP ---
History & Physical Update H&P update statement: This history and physical update is based on an assessment of the patient which was completed after admission or registration (within 24 hours), but prior to the surgery/procedure. H&P update: H&P reviewed & patient examined, no change in patient's condition since H&P completed
--- NOTE | 2017-07-06 07:24 | PDPROPOC ---
Sedation Plan of Care Sedation Plan of Care: mental status noted, patient educated of risks, benefits , alternatives, patient can tolerate sedation ASA Classification: ASA 2 Planned drugs: fentanyl, midazolam, other Mallampati Score: Class 2 Mallampati Reference Image: Patient passed 3-3-2 rule?: Yes
[2017-07-06] MEDS ORDERED: REMIFENTANIL HCL 1 MG VIAL ONE (07:29)
[2017-07-06] MEDS ORDERED: fentaNYL 100 MCG/2 ML INJ ONE (07:29)
[2017-07-06] MEDS ORDERED: PROPOFOL/EMULSION 500 MG/50 ML BOTTLE IV ONE (07:29)
[2017-07-06] MEDS ORDERED: LIDOCAINE 2% 100 MG/5 ML SYR ONE (07:31)
[2017-07-06] MEDS ORDERED: PHENYLEPHRINE HCL 100 MCG/ML SYR ONE (07:36)
[2017-07-06] MEDS ORDERED: LIDOCAINE HCL 160 MG/4 ML LTA KIT TP ONE (07:39)
[2017-07-06] MEDS ORDERED: HEPARIN 10,000 UNIT/10 ML MDV (1,000 UNIT/ML) ONE ×2 (08:27)
[2017-07-06] MEDS ORDERED: PROTAMINE SULFATE 50 MG/5 ML VIAL IVP ONE (09:10)
[2017-07-06] MEDS ORDERED: ONDANSETRON DISINTEGRATING 4 MG TAB PO PRN (09:40)
[2017-07-06] MEDS ORDERED: ATROPINE SULFATE 1 MG/10 ML SYR IVP PRN (09:40)
[2017-07-06] MEDS ORDERED: hydrALAZINE 20 MG/ML VIAL IVP PRN (09:40)
[2017-07-06] MEDS ORDERED: ONDANSETRON 4 MG/2 ML VIAL IVP PRN (09:40)
--- NOTE | 2017-07-06 10:38 | PDMN ---
Medical Necessity Medical necessity: [facility] IP only surgery; TAVR
[2017-07-06] MEDS: oxyCODONE IR 5 MG TAB PO PRN ×2 (11:03→20:49)
[2017-07-06] MEDS: HYDROmorphONE/DILAUDID 1 MG/ML INJ IVP PRN (11:58)
--- NOTE | 2017-07-06 12:38 | CPIP ---
[f rep st] INVASIVE CARDIAC PROCEDURE DATE OF PROCEDURE: 07/06/2017 INDICATION FOR PROCEDURE: Severe bioprosthetic aortic stenosis degeneration. CO-SURGEONS: Dr. Davey Bello, Dr. Jyoti Aguilar, Dr. Malclom Kauffman. PROCEDURE: 1. Nonselective left groin sheathogram with 8-[place]izen [place] sheath placement, left common femoral artery. 2. 6-[place] sheath, left common femoral vein with temporary pacemaker placed in right ventricle. 3. 6-[place] sheath, right femoral artery verified angiographically upsized to 14-[place] sheath after triple Perclose placements. 4. Placement of Medtronic Evolut-R 26 mm valve via the transfemoral route. 5. Left heart catheterization. 6. Aortic root angiography. HISTORY: Briefly, this is a 67-year-old male with history of aortic root repair and bioprosthetic ao rtic valve replacement approximately 9 years ago with Magna 26 mm valve. The patient was admitted fo r heart failure last week, was found to have severe bioprosthetic aortic valve degeneration with a va lve area of 0.5, peak gradient of over 80. Given these findings, patient consented for [id number] procedure with TAVR. INTERVENTION REPORT: After informed consent was obtained, patient brought to [facility], where the patient was electively intubated. POLI performed by Dr. Jyoti Aguilar. Patient was administered 2 g of Ancef pr ior to the case. A 8-[place] sheath in left common femoral artery verified angiographically. A 6-[place] sheath in left common femoral vein with temporary pacemaker placed in right ventricle. 6-[place]izen [place] sheath placed in r ight common femoral artery verified angiographically. This was then upsized to a 14-[place]izen [place] sheath af ter triple Perclose placements were placed. The valve was crossed with AL1 catheter, straight stiff Glidewire, switched out for a pigtail catheter, switched out for a Confida wire. At this time, the s norma was removed and attempts were made to place the valve; however, given the wire's thickness, the Medtronic CoreValve Evolut-R 26 mm valve could not traverse the valve area itself. The valve was re moved and replaced with a 14-[place] sheath, and a pigtail catheter was placed in LV, switched out for a long Lunderquist wire. The sheath was then removed and a Medtronic CoreValve Evolut-R 26 mm valve was placed successfully across the valve. Of note, the patient had received a total of 13,000 of he kalie during the case to maintain an ACT around 300. The valve was deployed at a pacing rate of 100 with the valve successfully deployed. We did have to reposition the valve twice to make sure of adeq uate depth; however, after the second repositioning and redeployment, the valve appeared to be in michelle quate positioning. The valve was deployed. There was no new perivalvular leak noted. Mitral regurg itation was stable. The valve area and gradient were much improved. The wire was pulled back. The right groin was closed with triple Perclose devices. The left groin was closed with 8-[place]izen [place] Angio-S eal. Venous sheath was closed with manual pressure. Patient tolerated procedure well with no compli cations. IMPRESSION: Successful placement of transcatheter aortic valve replacement in surgical aortic valve replacement with a Medtronic CoreValve Evolut-R 26 mm valve via the transfemoral route. PLAN: The patient will be admitted to ICU. Further orders following clinical course. /[id number]/MODL
--- NOTE | 2017-07-06 13:43 | GOP ---
[f rep st] OPERATIVE REPORT DATE OF OPERATION: 07/06/2017 SURGEON: Davey Bello DO PREOPERATIVE DIAGNOSIS: Prosthetic valve stenosis in the aortic position with small perivalvular jama k. POSTOPERATIVE DIAGNOSIS: Prosthetic valve stenosis in the aortic position with small perivalvular le ak. PROCEDURE PERFORMED: Right common femoral artery transcatheter aortic valve replacement with a 26 Ev olut R performed in conjunction with Dr. Acosta. FINDINGS: The patient was noted to high gradients across the prosthetic aortic valve placed 9 years prior, presenting with congestive heart failure. He was medically stabilized and consented for percu taneous valve replacement. DESCRIPTION OF PROCEDURE: He was brought to the operating room and intubated. Monitoring lines were placed. Femoral access and wire placement were performed by Dr. Acosta, with myself first assisting. We argenis daly the prosthesis in the right common femoral artery across the valve under fluoroscopic guidance, w ith initially partially deployed the valve, which was felt to be too deep on the noncoronary side. I t was repositioned and deployed, with excellent placement approximately 4-5 mm below the valvular davin shirley, with no intra-valvular regurgitation, but a small persistent perivalvular leak from the previous prosthesis. The patient remained hemodynamically stable. Dr. Acosta closed the femoral arteries with a Perclose . Doppler was intact to the right lower extremity and left lower extremity. He was returned to the recovery room in stable condition. CO-SURGEONS: 1. Davey Bello D.O. 2. Hari Acosta M.D. 3. Jyoti Aguilar M.D. /[id number]/[facility] [place]
--- NOTE | 2017-07-06 17:59 | POSTANESTH ---
Post Anesthetic Evaluation Cardiovascular Status: Normal, Stable Respiratory Status: Tx Decrease in SpO2 Level of Consciousness/Mental Status: Can Participate in Eval Pain Control: Adequate, Prn Tx Ordered Nausea/Vomiting Control: Adequate, Prn Tx Ordered Complications Possibly Related to Anesthesia: None Noted
[2017-07-06] MEDS: ATORVASTATIN CALCIUM 20 MG TAB PO SCH (20:49)
[2017-07-06] MEDS: clonazePAM 1 MG TAB PO SCH (20:49)
[2017-07-06] MEDS: IBUPROFEN 800 MG TAB PO PRN (20:49)
[2017-07-06] MEDS ORDERED: SIMVASTATIN 40 MG PO SCH (21:00)
[2017-07-07 05:59] LABS: INR 1.11 (0.83-1.16); PROTIME(PATIENT) 14.5 SEC (12.0-15.0)
[2017-07-07 06:12] LABS: PLATELET COUNT 107 10^3/uL (150-400)
--- NOTE | 2017-07-07 07:30 | PDCARPN ---
Cardiology Progress Note Chief Complaint: SOB Assessment/Plan: Assessment: s/p TAVR Plan: 07/07/17 07:29 Doing well OOB check echo transfer to PCU Subjective: doing well Reviewed/Discussed With: multidisciplinary team Time Spent with Patient: greater than 25 minutes Time Spent with Patient: Greater than 25 minutes spent on this patients care, greater than 50% of time spent counseling, educating, and coordinating care regarding the above mentioned plan. Objective: Vital Signs (8 Hrs) Temp Pulse Resp BP Pulse Ox 07/07/17 06:00 73 13 81/50 L 95 07/07/17 04:00 36.5 C 71 15 86/49 L 93 07/07/17 02:00 81 20 88/69 L 95 07/07/17 00:00 67 15 77/46 L 91 L Intake/Output (24 Hrs) 07/06/17 07/07/17 07/08/17 05:59 05:59 05:59 Intake Total 1140 Balance 1140 Intake: Oral (ml) 640 IV Intake (ml) 500 Other: Weight 74.843 kg Number of Voids Toilet 1 Result Diagrams: 07/07/17 05:20 07/07/17 05:20 - Physical Exam Constitutional: healthy appearing Eyes: PERRL Ears, Nose, Mouth, Throat: moist mucous membranes Cardiovascular: regular rate and rhythm Peripheral Pulses: 1+: femoral (R), femoral (L) Respiratory: clear to auscultate bilat Gastrointestinal: normoactive bowel sounds Genitourinary: no suprapubic tenderness Skin: no rashes Musculoskeletal: no muscular tenderness Neurologic: AAOx3 Psychiatric: cooperative Lymph, Heme, Immunologic: no lymphadenopathy ICD10 Worksheet Patient Problems: Problems Problem Status Onset Acute decompensated heart failure Acute Lung nodule Acute
[2017-07-07] MEDS: MULTIVITAMINS 1 EACH TAB PO SCH (08:16)
[2017-07-07] MEDS: ASCORBIC ACID 500 MG TAB PO SCH (08:16)
[2017-07-07] MEDS: ASPIRIN 81 MG CHEWABLE TAB PO SCH (08:17)
[2017-07-07] MEDS: clonazePAM 1 MG TAB PO SCH ×3 (08:17→21:38)
[2017-07-07] MEDS ORDERED: Herbals/Supplements -Info Only PO SCH (09:00)
--- NOTE | 2017-07-07 09:00 | CPEKG ---
Heart Rate: 81 RR Interval: 741 P-R Interval: 176 QRSD Interval: 154 QT Interval: 392 QTC Interval: 455 P [place]: 50 QRS [place]: 47 T Wave [place]: 152 EKG Severity - ABNORMAL ECG - EKG Impression: SINUS RHYTHM EKG Impression: PROBABLE LEFT ATRIAL ABNORMALITY EKG Impression: RIGHT BUNDLE BRANCH BLOCK EKG Impression: Diffuse T-wave inversions- consider benito-lateral ischemia Electronically Signed By: Hari Acosta 07-Jul-2017 11:16:55
--- NOTE | 2017-07-07 09:24 | ECHO ---
[email or web address] [address] [address] Main: [phone] Fax: Transthoracic Echocardiogram Name: NADEEM SANTIAGO MR#: [id number] Study Date: 07/07/2017 Study Time: 07:43 AM Date of : 1950 Age: 67 year(s) Height: 177.8 cm (70 in.) Weight: 74.84 kg (165 lb.) BSA: 1.92 m2 Gender: Male Examination: Echo Indication: Post TAVR Image Quality: Adequate Contrast: Requested by: Hari Acosta BP: 82 mmHg/48 mmHg Heart Rate: Rhythm: Indication: Post TAVR Procedure Staff Primary School Teacher Librarian: Shreya Hightower RDCS Reading Physician: Jayro Vaughn MD Requesting Provider: Conclusions: Normal size left ventricle. Concentric LV hypertrophy. Normal global systolic LV function. EF is 50 %. No regional wall motion abnormality. Normal diastolic LV function. Normal size right ventricle. Normal RV function. The left atrium is moderately dilated. The mitral valve is normal in appearance and function. Mild to moderate mitral regurgitation. No mitral stenosis is present. Post TAVR. There is a TAVR in place replacing a pre existing failed bioprosthetic aortic valve. The mean gradient for the TAVR is 23 mmhg and the peak gradient is 37 mmhg. The peak velocity is 3.0 m/s. There is a small perivalvular leak present along with a mild eccentric AI jet which was present before the TAVR procedure. The tricuspid valve is normal in appearance and function. Moderate tricuspid regurgitation is present. Right ventricular systolic pressure measures 49mmHg. There is no pulmonic regurgitation seen. No previous available Measurements: Chambers Valvular Assessment AV/MV Valvular Assessment TV/PV Normal Normal Normal Name Value Range Name Value Range Name Value Range Ao Ivanna (2D): 2.7 cm (1.4 cm-2.6 AV Vmax: 3.00 m/s (1 m/s-1.7 TR Vmax: 3.33 mm/s ( - ) cm) m/s) TR PGmax: 44 mmHg ( - ) Patient: NADEEM SANTIAGO Study Date: 07/07/2017 Page 1 of 3 07:43 AM IVSd (2D): 1.4 cm (0.6 cm-1.1 AV meanP mmHg ( - ) syst. PAP: 49 mmHg ( - ) cm) GELA (VTI): 0.8 cm ( - ) PV Vmax: 1.02 m/s (0.6 m/s-0.9 LVDd (2D): 5.2 cm (4.2 cm-5.9 AR (PHT): 263 ms ( - ) m/s) cm) MV E Vmax: 0.79 m/s ( - ) PV PGmax: 4 mmHg ( - ) LVDs (2D): 3.6 cm (2.1 cm-4 MV A Vmax: 0.43 m/s ( - ) cm) MV E/A: 1.84 ( - ) LVPWd (2D): 1.5 cm (0.6 cm-1 cm) MV PHT: 0.035 s ( - ) LVOTd 2.0 cm 2.0 cm mm MVA (PHT): 6.3 s ( - ) LVEF (BP): 50 % (>=55 %) RVDd(2D): 3.4 cm (1.9 cm-3.8 cmmm) Continued Measurements: Chambers Valvular Assessment AV/MV Valvular Assessment TV/PV Name Value Name Value Name Value LADs: 5.0 cm MV DecTime: 113 m/s CVP (est.): 5 mmHg LADs Lon.7 cm MV E' Septal: 0.04 m/s LA Area: 25.5 cm2 MV E/E' Septal: 17.60 LA Volume: 86 ml MV E/E' Lateral: 8.70 LA Volume Index: 44.8 ml/m2 AR Vmax: 3.53 cm/s RA Area: 20.5 cm2 Additional Vessels Name Value Ao Ascendin.7 cm Inferior Vena Cava: 2.3 cm Findings: Left Ventricle: Normal size left ventricle. Concentric LV hypertrophy. Normal global systolic LV function. EF is 50 %. No regional wall motion abnormality. Normal diastolic LV function. Right Ventricle: Normal size right ventricle. Normal RV function. Left Atrium: The left atrium is moderately dilated. Right Atrium: Right atrial enlargement. Mitral Valve: The mitral valve is normal in appearance and function. Mild to moderate mitral regurgitation. No mitral stenosis is present. Aortic Valve: Post TAVR. There is a TAVR in place replacing a pre existing failed bioprosthetic aortic valve. The mean gradient for the TAVR is 23 mmhg and the peak gradient is 37 mmhg. The peak velocity is 3.0 m/s. There is a small perivalvular leak present along with a mild eccentric AI jet which was present before the TAVR procedure. Tricuspid Valve: The tricuspid valve is normal in appearance and function. Moderate tricuspid regurgitation is present. Right ventricular systolic pressure measures 49mmHg. The pulmonary artery pressure is increased. Pulmonic Valve: The pulmonic valve is normal in appearance and function. There is no pulmonic regurgitation seen. Aorta: The aorta is normal. Normal size aortic root measuring 2.7 cm. Normal size ascending aorta measuring 2.7 cm. IVC: The IVC is dilated. Pericardium: No pericardial effusion. No pleural effusion. Patient: NADEEM SANTIAGO Study Date: 07/07/2017 Page 2 of 3 07:43 AM (No Signature Object) Patient: NADEEM SANTIAGO Study Date: 07/07/2017 Page 3 of 3 07:43 AM [id number]
--- NOTE | 2017-07-07 10:56 | ECHO ---
[email or web address] [address] [address] Main: [phone] Fax: Transesophageal Echocardiography Name: NADEEM SANTIAGO MR#: [id number] Study Date: 07/06/2017 Study Time: 07:56 AM Date of : 1950 Age: 67 year(s) Height: ( ) Weight: ( ) BSA: Gender: Male Examination: Indication: TAVR Image Quality: Contrast: Requested by: Hari Acosta Heart Rate: Rhythm: BP: / Procedure Staff Database Coordinator: Shreya Hightower [facility] Reading Physician: Jyoit Aguilar MD Requesting Provider: Hari Acosta POLI Exam Details Patient Consent: Risks, alternatives of procedure explained to patient, informed consent obtained. Conclusions: Low normal left ventricular systolic function. The ejection fraction is visually estimated to be 50 %. No regional wall motion abnormality. Normal size right ventricle. Mildly reduced RV function. No thrombus in left appendage. Moderate mitral valve regurgitation is present. There is a bioprosthetic aortic valve in place. The previous aortic valve peak gradient was 116 mmhg. The mean gradient was 85 mmhg. The peak velocity was 5.4 m/s. The aortic valve gradients after TAVR successful deployment was a mean of 11 mmhg, the peak gradient was 20 mmhg. The peak velocity was 2.2 m/s. Calculated GELA post TAVR is 1.4 cm2.. Mild to moderate tricuspid valve regurgitation. No pericardial effusion. Measurements: Chambers Valvular Assessment AV/MV Valvular Assessment TV/PV Normal Normal Normal Name Value Range Name Value Range Name Value Range LVOTd 2.2 cm 2.2 cm mm AV Vmax: 2.20 m/s (1 m/s-1.7 TR PGmax: 35 mmHg ( - ) Visual EF: 50 % m/s) syst. PAP: 40 mmHg ( - ) AV meanP mmHg ( - ) GELA (VTI): 1.2 cm ( - ) Patient: NADEEM SANTIAGO Study Date: 07/06/2017 Page 1 of 2 07:56 AM Additional Measurements: Valvular Assessment TV/PV Name Value CVP (est.): 5 mmHg Findings: Left Ventricle: Normal size left ventricle. No LV hypertrophy. Low normal left ventricular systolic function. The ejection fraction is visually estimated to be 50 %. No regional wall motion abnormality. Unable to assess diastolic dysfunction. Right Ventricle: Normal size right ventricle. Mildly reduced RV function. Left Atrium: The left atrium is normal in size. Left Atrial Appendage: No thrombus in left appendage. Right Atrium: The right atrium is normal in size. Mitral Valve: Moderate mitral valve regurgitation is present. No mitral stenosis is present. Aortic Valve: There is a bioprosthetic aortic valve in place. The previous aortic valve peak gradient was 116 mmhg. The mean gradient was 85 mmhg. The peak velocity was 5.4 m/s. The aortic valve gradients after TAVR successful deployment was a mean of 11 mmhg, the peak gradient was 20 mmhg. The peak velocity was 2.2 m/s. Calculated GELA post TAVR is 1.4 cm2.. Tricuspid Valve: Mild to moderate tricuspid valve regurgitation. The pulmonary artery pressure is normal. Right ventricular systolic pressure measures 40mmHg. Pulmonic Valve: The pulmonic valve is normal in appearance and function. Aorta: The aorta is normal. Pericardium: No pericardial effusion. l1n (No Signature Object) Patient: NADEEM SANTIAGO Study Date: 07/06/2017 Page 2 of 2 07:56 AM [id number]
[2017-07-07] MEDS: oxyCODONE IR 5 MG TAB PO PRN ×2 (12:21→19:41)
--- NOTE | 2017-07-07 17:15 | ASMTCMCOM ---
MAHESH Note CM Note Notes: 67yr old male admitted for Aortic stenosis. He has a Hx of AAA repair in '10, and AVR, HLD and reports that he stopped smoking 2 wks ago. Patient has two sons and a girlfriend. Therapies to MAHESH mcclain to follow. Date Signed: 07/07/2017 11:55 AM Electronically Signed By:Joslyn Coffman LCSW
[2017-07-07] MEDS: IBUPROFEN 800 MG TAB PO PRN (19:40)
[2017-07-07] MEDS ORDERED: ZOLPIDEM TARTRATE 5 MG TAB PO PRN (20:02)
[2017-07-07] MEDS: ATORVASTATIN CALCIUM 20 MG TAB PO SCH (21:38)
[2017-07-07] MEDS: HYDROmorphONE/DILAUDID 1 MG/ML INJ IVP PRN (21:38)
[2017-07-08] MEDS: oxyCODONE IR 5 MG TAB PO PRN (04:26)
[2017-07-08] MEDS: IBUPROFEN 800 MG TAB PO PRN (04:27)
[2017-07-08 04:50] LABS: PLATELET COUNT 98 10^3/uL (150-400)
--- NOTE | 2017-07-08 06:52 | PDCARPN ---
Cardiology Progress Note Chief Complaint: SOB Assessment/Plan: Assessment: s/p TAVR Plan: 07/07/17 07:29 Doing well OOB check echo transfer to PCU 07/08/17 06:51 doing well d/c home today f/u in 1 week Subjective: doing well Reviewed/Discussed With: multidisciplinary team Time Spent with Patient: greater than 25 minutes Time Spent with Patient: Greater than 25 minutes spent on this patients care, greater than 50% of time spent counseling, educating, and coordinating care regarding the above mentioned plan. Objective: Vital Signs (8 Hrs) Temp Pulse Resp BP Pulse Ox 07/08/17 04:00 36.7 C 89 14 103/64 92 Intake/Output (24 Hrs) 07/07/17 07/08/17 07/09/17 05:59 05:59 05:59 Intake Total 1140 1000 Balance 1140 1000 Intake: Oral (ml) 640 1000 IV Intake (ml) 500 Other: Weight 74.843 kg Number of Voids Toilet 1 2 Result Diagrams: 07/08/17 04:13 07/08/17 04:13 - Physical Exam Constitutional: healthy appearing Eyes: PERRL Ears, Nose, Mouth, Throat: moist mucous membranes Cardiovascular: regular rate and rhythm Peripheral Pulses: 1+: femoral (R), femoral (L) Respiratory: clear to auscultate bilat Gastrointestinal: normoactive bowel sounds Genitourinary: no suprapubic tenderness Skin: no rashes Musculoskeletal: no muscular tenderness Neurologic: AAOx3 Psychiatric: cooperative ICD10 Worksheet Patient Problems: Problems Problem Status Onset Acute decompensated heart failure Acute Lung nodule Acute
[2017-07-08 07:04] VITALS: BP 93/60
[2017-07-08] MEDS: clonazePAM 1 MG TAB PO SCH (08:13)
[2017-07-08] MEDS: ASPIRIN 81 MG CHEWABLE TAB PO SCH (08:13)
[2017-07-08] MEDS: ASCORBIC ACID 500 MG TAB PO SCH (08:13)
[2017-07-08] MEDS: MULTIVITAMINS 1 EACH TAB PO SCH (08:13)
--- NOTE | 2017-07-08 09:24 | GDS ---
[f rep st] DISCHARGE SUMMARY DISCHARGE DIAGNOSIS: Aortic stenosis. HOSPITAL COURSE: This is a 67-year-old male with history of previous bioprosthetic aortic valve repl acement 9 years ago. The patient had episodes of heart failure last week, necessitating admission, w as found to have severe bioprosthetic degeneration with critical aortic stenosis. After careful cons ideration with CT Surgery, the patient was decided to be a suitable candidate for TAVR and SAVR proce [facility]. The patient underwent successful Medtronic CoreValve Evolute R 26 mm valve placement in his pr ior bioprosthetic valve on 07/06/2017. Post procedure, the patient is doing excellent with no shortn ess of breath. He actually indicates that this is the best he has felt in 3 years. He has been ambu lating in the halls without problems. The post procedure echocardiogram shows normally functioning T AVR and SAVR. There is a mild paravalvular leak; however, this is a perivalvular leak that was prese nt prior to the TAVR placement that was due to the initial bioprosthetic deployment. The patient maggy l be discharged home with his home medications this morning, as well as aspirin 81 p.o. daily. He wi ll follow up with us in the office in 1 week's time. /[id number]/MODL
== END 2017-07-08 09:55 | disposition home or self-care (01) | DRG 267 ==
LOC: FCATH 06:21 → F2N 09:40 → F2W 07-07 13:53
PROVIDERS: ADMIT Internal Medicine Cardiovascular Disease; ATTEND Internal Medicine Cardiovascular Disease
PROC: 02RF38Z Replacement of Aortic Valve with Zooplastic Tissue, Percutaneous Approach (ICD-10-PCS; principal; 2017-07-06)
PROC: B3101ZZ Fluoroscopy of Thoracic Aorta using Low Osmolar Contrast (ICD-10-PCS; principal; 2017-07-06)
PROC: 4A023N7 Measurement of Cardiac Sampling and Pressure, Left Heart, Percutaneous Approach (ICD-10-PCS; principal; 2017-07-06)
PROC: B246ZZ4 Ultrasonography of Right and Left Heart, Transesophageal (ICD-10-PCS; principal; 2017-07-06)
DX: T82.01XA Breakdown (mechanical) of heart valve prosthesis, initial encounter (principal); Z00.6 Encounter for examination for normal comparison and control in clinical research program; I10 Essential (primary) hypertension; I50.9 Heart failure, unspecified; J44.9 Chronic obstructive pulmonary disease, unspecified; E78.5 Hyperlipidemia, unspecified; Z87.891 Personal history of nicotine dependence
CPT/HCPCS: 97161-GP; C1760; C1769; C1894; G8978-GP-CI; G8979-GP-CI; G8980-GP-CI; J0690; J1170; J1644; J2001; J2370; J2704; J2720; J3010; Q9967

== ENCOUNTER 2018-01-30 17:07 | Emergency (ER) | payer OTHER, MEDICARE ==
--- NOTE | 2018-01-30 17:18 | EDPHY ---
H & P Stated Complaint: Wants detox from alcohol;drinking more than eating Time Seen by Provider: 01/30/18 17:17 HPI/ROS: CHIEF COMPLAINT: "Drinking too much" HISTORY OF PRESENT ILLNESS: This is a 67-year-old male with a history of alcohol abuse who presents requesting detox. He has undergone inpatient alcohol rehab twice, once at [facility]. However, his sobriety is lasted no longer than a month or 2. He tells me that he is currently drinking too much. He drinks at least 5 vodkas daily. He believes that he had a drink earlier today. He tells me that he has been trying to a detox at home, unsuccessfully. He states that he is not drinking water or eating very much any feels somewhat weak as a result. Friends are concerned about him and encouraged him to come to the emergency department. REVIEW OF SYSTEMS: A ten system review of systems was performed and is negative with the exception of the items mentioned in the HPI. Past medical history: 1. Alcohol abuse 2. Aortic stenosis Past surgical history: Aortic valve replacement with subsequent degeneration and 2nd aortic valve replacement in June of 2017 Social history: He lives with roommates. He drinks at least 5 vodkas daily. He quit smoking cigarettes 2 weeks ago. He does not use illicit drugs. He is retired after only [employer]. General Appearance: Alert. Vital signs reviewed. Pulse ox 88% on room air. Heart rate 102. Eyes: Pupils equal and round, bilateral conjunctival injection, bilateral discharge. Anicteric. ENT, Mouth: Mucous membranes are dry, no oropharyngeal erythema or edema. Neck: No lymphadenopathy, supple. No JVD. Respiratory: Lungs are clear to auscultation; no wheezes, rales, or rhonchi. Cardiovascular: Regular rate and rhythm; 3/6 murmur. Gastrointestinal: Abdomen is soft and nontender, no masses or organomegaly, bowel sounds normal. Skin: Warm and dry, no rashes on exposed skin, normal color. Back: Nontender to palpation over the thoracolumbar spine. No CVAT. Extremities: No lower extremity edema, no calf tenderness or swelling. Tobacco discoloration on digits of left hand. Neurological: Alert and oriented. Moving all four extremities easily and equally. Psychiatric: Flat affect. - Personal History Current Tetanus Diphtheria and Acellular Pertussis (TDAP): Unsure - Medical/Surgical History Hx Asthma: No Hx Chronic Respiratory Disease: No Hx Diabetes: No Hx Cardiac Disease: Yes Hx Renal Disease: No Hx Cirrhosis: No Hx Alcoholism: Yes Hx HIV/AIDS: No Hx Splenectomy or Spleen Trauma: No Other PMH: OPEN HEART 2009 AORTIC VALVE REPLACEMENT (ANIMAL VALVE), Anxiety, Chronic Back Pain - Social History Smoking Status: Former smoker Constitutional: Initial Vital Signs Temperature (C) 36.7 C 01/30/18 17:08 Heart Rate 102 H 01/30/18 17:08 Respiratory Rate 16 01/30/18 17:08 Blood Pressure 113/68 01/30/18 17:08 O2 Sat (%) 88 L 01/30/18 17:08 O2 Delivery Mode Room Air Allergies/Adverse Reactions: No Known Allergies Allergy (Verified 01/30/18 17:08) Home Medications: Medication Instructions Recorded Ascorbic Acid [Vitamin C 500 mg 500 mg PO DAILY 07/12/13 (*)] Aspirin [Aspirin 81mg (*)] 81 mg PO DAILY 07/12/13 Herbals/Supplements -Info Only 1 ea PO DAILY 07/12/13 Multivitamins [Multivitamin (*)] 1 tab PO DAILY 07/12/13 Simvastatin [Zocor 20 mg] 40 mg PO HS 07/12/13 rOPINIRole HCL [Requip 2mg (*)] 4 mg PO HS 07/12/13 oxyCODONE HCL/ACETAMINOPHEN 1 each PO Q6 PRN 06/29/17 [Percocet 10-325 mg Tablet] clonazePAM [klonoPIN (*)] 1 mg PO TID #60 tab 07/08/17 Departure - Departure Disposition: Home, Routine, Self-Care Clinical Impression: Alcohol abuse Condition: Good Instructions: Abuse of Alcohol (ED) Additional Instructions: [facility] They will have medicine available to give you for symptoms of alcohol withdrawal. I have spoken with Dr. Trinidad's office and someone from the office will contact you on Thursday to see how you are doing. Referrals: Reuben Lopez PA [Primary Care Provider] - As per Instructions [facility] 24 Hours [Outside] - As per Instructions
[2018-01-30] MEDS ORDERED: CHLORDIAZEPOXIDE 25MG PREPK#6 BTL TAKEHOME ONE (18:20)
--- NOTE | 2018-01-30 18:23 | ASMTCMCOM ---
CM Note CM Note Notes: Patient presents to the ED at the encouragement of friends and/or "roommates" due to concerns of heavy drinking. Patient is currently alert and oriented. He admits to a history of depression and ETOH and his last drink was "yesterday or today". He tells this CM that he has been to detox in the past a couple of times and is not sure he wants to do that again. Patient's PCP is noted as AJAY Jackson. I have confirmed with patient that he has not seen Reuben in a few months but has had a good raport with him. Patient verbalizes feelings of depression related to senior living and "lack of purpose". I have discussed this with Dr. Medrano who will reach out to Reuben Lopez/Dr. Trinidad to discuss patient's presentation. This CM informed patient of immediate detox option ([facility]) if patient desires. I have explained that this is NOT a medical detox, but that it is available at any time. Patient is aware that this ED can/will provide transportation and medication for him to take to the [facility] if he would like to initiate detox. In addition, I spoke with patient about [facility] and other medical detox options. Patient tells me at this time that he does not want to return to a detox "where they hook me up to IV's and want me to stay for several days". Patient is in agreement to plan of reaching out to his PCP and has not decided whether he would like to go to detox ([facility]) at this time. Date Signed: 01/30/2018 06:23 PM Electronically Signed By:Samanta Tucker RN
[2018-01-30 18:37] VITALS: BP 110/80
== END 2018-01-30 18:37 | disposition home or self-care (01) ==
DX: F10.129 Alcohol abuse with intoxication, unspecified (principal)

== ENCOUNTER 2018-02-01 10:07 | Inpatient (IN) | payer OTHER, MEDICARE ==
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
[2018-02-01] MEDS ORDERED: NS 1,000 ML IV ONE (11:08)
[2018-02-01] MEDS ORDERED: FOLIC ACID 1 MG TAB PO ONE (11:08)
[2018-02-01] MEDS ORDERED: THIAMINE HCL 100 MG TAB PO ONE (11:08)
[2018-02-01 11:50] LABS: CREATINE KINASE 71 IU/L (0-224)
[2018-02-01 11:58] LABS: PLATELET COUNT 69 10^3/uL (150-400)
[2018-02-01] MEDS ORDERED: MAGNESIUM SULF 2 GM/WATER 50 ML IV ONE ×2 (12:15→19:50)
[2018-02-01] MEDS ORDERED: ACETAMINOPHEN 325 MG TAB PO PRN (16:31)
[2018-02-01] MEDS ORDERED: FLUMAZENIL 0.5 MG/5 ML MDV IVP PRN (16:31)
[2018-02-01] MEDS ORDERED: ONDANSETRON 4 MG/2 ML VIAL IVP PRN (16:31)
[2018-02-01] MEDS ORDERED: NICOTINE POLACRILEX 2 MG GUM B PRN (16:31)
[2018-02-01] MEDS ORDERED: ONDANSETRON DISINTEGRATING 4 MG TAB PO PRN (16:31)
[2018-02-01] MEDS ORDERED: MAG HYDROX/AL HYDROX/SIMETH 30 ML UDCUP PO PRN (16:31)
[2018-02-01] MEDS ORDERED: PROMETHAZINE HCL 25 MG/ML INJ IVP PRN (16:31)
[2018-02-01] MEDS ORDERED: NICOTINE 21 MG/24 HR PATCH TD PRN (16:31)
[2018-02-01] MEDS ORDERED: CYCLOBENZAPRINE 10 MG TAB PO PRN (16:38)
--- NOTE | 2018-02-01 17:35 | PDGENHP ---
History and Physical - Chief Complaint 'can't walk' - History of Present Illness 67 yo M with hx of VHD, hx of aortic valve replacement and degeneration with subsequent TAVR, as well as heavy etoh abuse presenting with inability to walk for the last couple of days. Patient notes that he elected to stop drinking last week and checked himself in to the [facility]. He has some difficulty with memory in terms of days of these events it seems in discussion with him, but appears he was in the [facility] for a couple of days undergoing withdrawal, and when they tried to discharge him today he was unable to walk and so was sent here for further evaluation. Patient initially telling me that he is unwilling to remain in the hospital as he needs his phone and that he has been having issues with inability to walk for a 'long time' anyway, but shortly after that his son arrives who notes that when he saw his dad a week ago he was able to walk and this all seems new. Patient is a bit intermittently irritable with me and states that he keeps having people 'disrespect' him and tell him what to do including the 'lady downstairs' but after some discussion is amenable to staying in the hospital. He was incontinent of stool while talking with myself and his son in the ER and did not seem aware of it. He had otherwise no complaints, but should be noted that his history was limited by what appeared to be new cognitive issues. History Information - Allergies/Home Medication List Allergies/Adverse Reactions: No Known Allergies Allergy (Verified 01/30/18 17:08) Home Medications: Ascorbic Acid [Vitamin C 500 mg (*)] 500 mg PO DAILY 07/12/13 [Last Taken ] Aspirin [Aspirin 81mg (*)] 81 mg PO DAILY 07/12/13 [Last Taken 01/29/18] Multivitamins [Multivitamin (*)] 1 tab PO DAILY 07/12/13 [Last Taken 01/29/18] Simvastatin [Zocor 20 mg] 20 mg PO HS 07/12/13 [Last Taken 01/31/18] rOPINIRole HCL [Requip 2mg (*)] 2 mg PO BID 07/12/13 [Last Taken 01/31/18] Cyclobenzaprine [Flexeril 10 MG (*)] 10 mg PO BID PRN 02/01/18 [Last Taken Unknown] I have personally reviewed and updated: family history, medical history, social history - Past Medical History hypertension, hyperlipidemia, psychiatric history (anxiety) Additional medical history: valvular heart disease: severe s/p replacement and degeneration of replacement valve with recent TAVR. mod MR/TR. colon polyps. etoh abuse. PUD - Surgical History Additional surgical history: AVR. TAVR. hernia repair x 4. asc aortic aneurysm repair. 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 [employer] Review of Systems Review of Systems: ROS: 10pt was reviewed & negative except for what was stated in HPI & below Physical Exam Physical Exam: Temp Pulse Resp BP Pulse Ox 36.3 C 92 18 124/75 H 95 02/01/18 10:14 02/01/18 15:50 02/01/18 15:50 02/01/18 15:50 02/01/18 16:30 O2 (L/minute) 2 Constitutional: not in pain, chronically ill appearing, unkempt Eyes: PERRL, anicteric sclera Ears, Nose, Mouth, Throat: moist mucous membranes, hearing normal, poor dentition Cardiovascular: regular rate and rhythym, no murmur, rub, or gallop, No edema Respiratory: no respiratory distress, no rales or rhonchi Gastrointestinal: normoactive bowel sounds, soft, non-tender abdomen Genitourinary: no bladder tenderness Skin: warm, normal color Musculoskeletal: no muscle tenderness Neurologic: CN II-XII Intact, No AAOx3 Psychiatric: encephalopathic, anxious, No interacting appropriately Lab Data & Imaging Review 02/01/18 11:10 02/01/18 11:10 WBC 2.92 10^3/uL (3.80-9.50) L 02/01/18 11:10 RBC 3.46 10^6/uL (4.40-6.38) L 02/01/18 11:10 Hgb 13.0 g/dL (13.7-17.5) L 02/01/18 11:10 Hct 37.8 % (40.0-51.0) L 02/01/18 11:10 MCV 109.2 fL (81.5-99.8) H 02/01/18 11:10 MCH 37.6 pg (27.9-34.1) H 02/01/18 11:10 MCHC 34.4 g/dL (32.4-36.7) 02/01/18 11:10 RDW 15.6 % (11.5-15.2) H 02/01/18 11:10 Plt Count 69 10^3/uL (150-400) L 02/01/18 11:10 MPV 11.2 fL (8.7-11.7) 02/01/18 11:10 Neut % (Auto) Not Reported 02/01/18 11:10 Lymph % (Auto) Not Reported 02/01/18 11:10 [place] % (Auto) Not Reported 02/01/18 11:10 Eos % (Auto) Not Reported 02/01/18 11:10 Baso % (Auto) Not Reported 02/01/18 11:10 Nucleat RBC Rel Count Not Reported 02/01/18 11:10 Absolute Neuts (auto) Not Reported 02/01/18 11:10 Absolute Lymphs (auto) Not Reported 02/01/18 11:10 Absolute Monos (auto) Not Reported 02/01/18 11:10 Absolute Eos (auto) Not Reported 02/01/18 11:10 Absolute Basos (auto) Not Reported 02/01/18 11:10 Absolute Nucleated RBC Not Reported 02/01/18 11:10 Immature Gran % Not Reported 02/01/18 11:10 Seg Neutrophils % 45.0 % 02/01/18 11:10 Band Neutrophils % 33.0 % 02/01/18 11:10 Lymphocytes % 13.0 % 02/01/18 11:10 Monocytes % 6.0 % 02/01/18 11:10 Eosinophils % 1.0 % 02/01/18 11:10 Basophils % 2.0 % 02/01/18 11:10 Metamyelocytes % 0.0 % 02/01/18 11:10 Myelocytes % 0.0 % 02/01/18 11:10 Promyelocytes % 0.0 % 02/01/18 11:10 Blast Cells % 0.0 % 02/01/18 11:10 Immature Gran # Not Reported 02/01/18 11:10 Absolute Seg Neuts 1.31 10^3/uL (1.70-6.50) L 02/01/18 11:10 Absolute Band Neuts 0.96 10^3/uL (0.00-0.70) H 02/01/18 11:10 Absolute Lymphocytes 0.38 10^3/uL (1.00-3.00) L 02/01/18 11:10 Absolute Monocytes 0.18 10^3/uL (0.30-0.80) L 02/01/18 11:10 Absolute Eosinophils 0.03 10^3/uL (0.03-0.40) 02/01/18 11:10 Absolute Basophils 0.06 10^3/uL (0.02-0.10) 02/01/18 11:10 Absolute Metamyelocyte 0.00 10^3/mL (0.00-0.00) 02/01/18 11:10 Absolute Myelocytes 0.00 10^3/mL (0.00-0.00) 02/01/18 11:10 Absolute Promyelocytes 0.00 10^3/uL (0.00-0.00) 02/01/18 11:10 Absolute Plasma Cells 0.00 10^3/uL (0.00-0.00) 02/01/18 11:10 Nucleated RBCs 4.0 /100 WBC (0-0) H 02/01/18 11:10 Absolute Blast Cells 0.00 10^3/uL (0.00-0.00) 02/01/18 11:10 Plasma Cells % 0.0 % 02/01/18 11:10 Platelet Estimate DECREASED (ADEQ) L 02/01/18 11:10 Polychromasia 1+ H 02/01/18 11:10 Oval Macrocytes 2+ H 02/01/18 11:10 Sodium 134 mEq/L (135-145) L 02/01/18 11:10 Potassium 3.5 mEq/L (3.5-5.2) 02/01/18 11:10 Chloride 93 mEq/L (97-110) L 02/01/18 11:10 Carbon Dioxide 31 mEq/l (22-31) 02/01/18 11:10 Anion Gap 10 mEq/L (6-14) 02/01/18 11:10 BUN 9 mg/dL (7-23) 02/01/18 11:10 Creatinine 0.6 mg/dL (0.7-1.3) L 02/01/18 11:10 Estimated GFR > 60 02/01/18 11:10 Glucose 109 mg/dL (70-100) H 02/01/18 11:10 Calcium 8.5 mg/dL (8.5-10.4) 02/01/18 11:10 Magnesium 0.9 mg/dL (1.6-2.3) L* 02/01/18 11:10 Creatine Kinase 71 IU/L (0-224) 02/01/18 11:10 Ethyl Alcohol < 10 mg/dL (0-10) 02/01/18 11:10 Visualized and Interpreted imaging results: Yes Interpretation: lumbar spine MRI: multilevel degenerative disc disease, some associated foraminal narrowing, heterogenous marrow Assessment & Plan Assessment: Anemia secondary to alcohol (Acute) Hypomagnesemia (Acute) Weakness (Acute) 67 yo M with hx of VHD, etoh abuse presenting with inability to walk and confusion in setting of recently quitting alcohol # gait instability: all in all concerning for Wernicke's encephalopathy, patient notes poor nutrition and this seems to be a rapid change in his mobility without good explanation by imaging. Will start high dose thiamine as next, pt/ot. May require SNF after discharge depending on progress. # toxic encephalopathy: in the setting of chronic heavy etoh abuse and presumed Wernicke's as above, started on high dose thiamine, monitoring. Patient is a bit resistant to acknowledging his mentation is off, evidence of confabulation in discussion with him. # alcohol use disorder, severe/alcohol withdrawal, severe: unclear when his last drink was, per patient was last week, came from the [facility], BAL of 10. Still with some tremors on exam, will start CIWA, multivitamin, high dose thiamine, folate. Will need CM and resources prior to discharge. # VHD: with hx of aortic stenosis s/p AVR and degeneration requiring TAVR in June , does not appear to have e/o chf at this time, also known MR/TR, will monitor on tele # anxiety: chronically on klonopin, likely contributing to above, on CIWA for now but will need to be sure scores aren't being inflated due to his chronic underlying anxiety # hypomagnesemia: suspect all his electrolytes will trend down due to poor nutrition and high risk for refeeding syndrome, will start electrolyte protocol and replete as indicated # IP status, will need > 48 hours for eval/mgmt of above Patient new to my care. Old records reviewed and summarized as above. Care plan reviewed with ER doctor including plans for Mag replacement.
[2018-02-01] MEDS ORDERED: PROTOCOL CALCIUM 1 DOSE IV PRN (17:47)
[2018-02-01] MEDS ORDERED: PROTOCOL MAGNESIUM 1 DOSE IV PRN (17:47)
[2018-02-01] MEDS ORDERED: PROTOCOL K PHOSPHATE 1 DOSE IV PRN (17:47)
[2018-02-01] MEDS ORDERED: PROTOCOL POTASSIUM 1 DOSE MISC PRN (17:47)
--- NOTE | 2018-02-01 18:26 | ASMTLACE ---
JARROD Acuity / Level of Answers: Yes Care: Did the patient have an inpatient admission? Comorbidities - select Answers: Congestive heart failure all that apply Coronary Artery Disease Opioid dependence / Chronic pain Peptic ulcer disease Other Notes: Chronic back pain, HTN, HLD, VHD, CA BG, TAVR, colon polyps, hernia repair x 4 # of Emergency department Answers: 1-2 visits in the last 6 months Social determinants Answers: History of substance abuse (ETOH, street drugs, prescription drugs, etc.) Mental health diagnosis (anxiety, depression, pers onality disorders, etc.) Score: 21 Date Signed: 02/01/2018 06:25 PM Electronically Signed By:Faith Almaraz RN
[2018-02-01 18:50] LABS: INR 1.06 (0.83-1.16)
[2018-02-01 19:00] LABS: PLATELET COUNT 68 10^3/uL (150-400)
--- NOTE | 2018-02-01 19:13 | ASMTCMCOM ---
CM Note CM Note Notes: Pt presented to the ED via EMS for ETOH detox, leg weakness and difficulty ambulating. Pt admitted for confusion, weakness, hypomagnesemia, and alcoholic anemia. Pt's PMH includes CAD, CHF, CABG, VHD, TAVR, HLD, HTN, PUD, hernia repairs x4, ETOH abuse, anxiety, and restless leg syndrome. Pt coming from [facility]. Pt was recently in the ED on 01/30/18. Spoke renata/Cathy at Detox and she states that pt has been at detox all day yesterday and last night. Per Cathy, pt was incontinent of urine and stool numerous times throughout his stay at detox. Pt's twin sons, Farhan ([phone]) and Gabriele ([phone]) later arrived to the ED. Pt gave verbal permission to provide them with information/updates regarding pt's current status, admission and POC. Spoke renata/Farhan (lives in [place]) and Gabriele (lives in [place]) re:concerns for pt's ability to return home safely due pt's gait instability, incontinence and confusion due to possible Wernicke's or toxic encephelopathy Farhan and Gabriele state that they haven't seen the pt "in about a month" but it also sounds like one of them saw him about a week ago and that the pt was able to ambulate independently at that time. 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 One of pt's roommates/tenants is Pete ([phone]) and "is kind of a caregiver and spends the most time with him and knows the most about how things are going at home" per Farhan and Gabriele. Farhan and Gabriele say Pete has Pt also has a daughter, Imelda Arguello ([phone]) who lives in [place] and is involved. Not sure if pt has [facility] paperwork completed. Pt's PCP is listed as AJAY Jackson at [facility] ([phone]). This CM spoke Axel at [facility] and she states the last time the pt was seen in their office was August 2015. It is unclear when the last time the pt saw a coal pulverizer operator. Pt was admitted to [facility] in June 2017. Exact DC needs TBD. PT/OT/GAS METER INSTALLER HELPER evals pending. CM to follow. Date Signed: 02/01/2018 07:12 PM Electronically Signed By:Faith Almaraz RN
[2018-02-01] MEDS ORDERED: CALCIUM GLUCONATE 50 ML IV ONE (19:47)
[2018-02-01] MEDS ORDERED: POTASSIUM CL 10 MEQ TAB PO ONE (19:47)
[2018-02-01] MEDS: ATORVASTATIN CALCIUM 10 MG TAB PO SCH (21:19)
[2018-02-01] MEDS: LORazepam 2 MG/ML INJ IVP PRN (21:19)
[2018-02-01] MEDS: THIAMINE HCL 500 MG in NS 100 ML IV SCH (21:21)
[2018-02-02] MEDS: LORazepam 2 MG/ML INJ IVP PRN (00:17)
[2018-02-02] MEDS: NS 1,000 ML IV SCH ×3 (04:15→22:59)
[2018-02-02 05:08] LABS: PLATELET COUNT 62 10^3/uL (150-400)
[2018-02-02] MEDS: THIAMINE HCL 500 MG in NS 100 ML IV SCH ×3 (05:11→21:47)
[2018-02-02] MEDS ORDERED: CALCIUM GLUCONATE 50 ML IV ONE (07:20)
[2018-02-02] MEDS ORDERED: POTASSIUM CL 10 MEQ TAB PO ONE ×2 (07:21→21:34)
[2018-02-02] MEDS ORDERED: MAGNESIUM SULF 1 GM/DEXTROSE 100 ML IV ONE (07:22)
[2018-02-02] MEDS: FOLIC ACID 1 MG TAB PO SCH (08:07)
[2018-02-02] MEDS: MULTIVITAMINS 1 EACH TAB PO SCH (08:07)
[2018-02-02] MEDS: ASPIRIN 81 MG CHEWABLE TAB PO SCH (08:07)
[2018-02-02] MEDS ORDERED: ENOXAPARIN 40 MG/0.4 ML SYR SC SCH (09:00)
--- NOTE | 2018-02-02 09:25 | PDMN ---
Medical Necessity Medical necessity: [facility] M595 Substance Related D/O: 68 yo presents w/ inability to walk and confusion in setting of recently quitting etoh. Concerning for Wernicke's encephalopathy. CIWA protocol started, high dose thiamine started, IVF started. Meets IP [facility] criteria for acute etoh w/d w/ s/sx tachycardia, tremors present, gait instability, confusion, cardiac hx. Hx AVR, TAVR, heavy etoh abuse
--- NOTE | 2018-02-02 13:22 | HOSPPROG ---
Hospitalist Progress Note Assessment/Plan: 67 yo M with hx of VHD, hx of aortic valve replacement and degeneration with subsequent TAVR, as well as heavy etoh abuse presenting with inability to walk for the last couple of days and confusion. Patient notes that he elected to stop drinking last week and [facility] himself [facility]. *gait instability -multifactorial including concern for Wernicke's encephalopathy, poor nutrition -Don said he is unable to walk *acute toxic encephalopathy (improving) -started on high dose of thiamine due to concern for Wernicke's -he is oriented to place, time, says he knows he is here because he can't walk *severe alcohol use disorder -CIWA -he said he quit drinking a few weeks ago-is tremulous and tachycardic *VHD w hx of s/p AVR and then TAVR *anxiety -chronically on Klonopin *hypomagnesia -electrolyte protocol *hyponatremia *alcohol hepatitis -LFT's are very elevated *plan: supportive care. Suspect he will need a SNF, will cont high dose thiamine. Subjective: Kiran has no complaints, but wants to be able to walk. Objective: Vital Signs Temp Pulse Resp BP Pulse Ox 37.8 C 115 H 16 119/76 92 02/02/18 12:17 02/02/18 12:17 02/02/18 12:17 02/02/18 12:17 02/02/18 12:17 Laboratory Results 02/02/18 04:45 02/02/18 04:45 02/01/18 02/02/18 02/03/18 05:59 05:59 05:59 Intake Total 1200 120 Output Total 600 Balance 1200 -480 PT 14.0 SEC (12.0-15.0) 02/01/18 18:10 INR 1.06 (0.83-1.16) 02/01/18 18:10 - Physical Exam Constitutional: chronically ill appearing, unkempt Eyes: PERRL, scleral injection Ears, Nose, Mouth, Throat: hearing normal Cardiovascular: regular rate and rhythym, systolic murmur, tachycardia Respiratory: no respiratory distress Gastrointestinal: normoactive bowel sounds Skin: warm Neurologic: other (alert and oriented to himself, place and that he can't walk, lacks insight that alcohol is causing his problems) Psychiatric: interacting appropriately, not encephalopathic, poor insight, poor judgement ICD10 Worksheet Patient Problems: Problems Problem Status Onset Anemia secondary to alcohol Acute Hypomagnesemia Acute Weakness Acute Acute decompensated heart failure Acute Lung nodule Acute
--- NOTE | 2018-02-02 21:33 | ASMTCMCOM ---
CM Note CM Note Notes: Therapies are recommending SNF. CM met w/ pt for dispo planning. Pt is agreeable to referrals being sent to SNF. CM provided pt w/ senior blue book. CM to follow. Plan: SNF Date Signed: 02/02/2018 02:12 PM Electronically Signed By:JUSTINE Castrejon
[2018-02-02] MEDS: ATORVASTATIN CALCIUM 10 MG TAB PO SCH (21:46)
[2018-02-03] MEDS: THIAMINE HCL 500 MG in NS 100 ML IV SCH ×3 (05:00→21:12)
[2018-02-03 06:37] LABS: PLATELET COUNT 64 10^3/uL (150-400)
[2018-02-03] MEDS ORDERED: CALCIUM GLUCONATE 50 ML IV ONE (07:17)
[2018-02-03] MEDS ORDERED: POTASSIUM CL 10 MEQ TAB PO ONE ×2 (07:17→21:19)
[2018-02-03] MEDS ORDERED: MAGNESIUM SULF 2 GM/WATER 50 ML IV ONE (07:18)
[2018-02-03] MEDS: NS 1,000 ML IV SCH ×2 (07:24→16:59)
[2018-02-03] MEDS: MULTIVITAMINS 1 EACH TAB PO SCH (07:46)
[2018-02-03] MEDS: ASPIRIN 81 MG CHEWABLE TAB PO SCH (07:47)
[2018-02-03] MEDS: FOLIC ACID 1 MG TAB PO SCH (07:47)
[2018-02-03] MEDS: HYDROCODONE/APAP 5/325 TAB PO PRN (07:47)
[2018-02-03] MEDS: LORazepam 0.5 MG TAB PO PRN ×3 (10:52→21:34)
--- NOTE | 2018-02-03 14:19 | ASMTCMCOM ---
CM Note CM Note Notes: Pts case discussed w/ Maria Elena Esquivel Np. Pt has been accepted at [facility] and [facility]. CM notified pt of this. Pt wants to see how he will do in the next few days. CM to follow. Plan: TBD Date Signed: 02/03/2018 02:18 PM Electronically Signed By:JUSTINE Castrejon
--- NOTE | 2018-02-03 14:58 | HOSPPROG ---
Hospitalist Progress Note Assessment/Plan: reviewed his MRI finding, has multilevel DDD. Has heterogeneous bone marrow in the lumbar spine and sacrum. Will need further f/u in regards to this. 67 yo M with hx of VHD, hx of aortic valve replacement and degeneration with subsequent TAVR, as well as heavy etoh abuse presenting with inability to walk for the last couple of days and confusion. Patient notes that he elected to stop drinking last week and checked himself in to [facility]. First encounter, chart reviewed. D/W RN. *gait instability -multifactorial including concern for Wernicke's encephalopathy, poor nutrition -Don said he is unable to walk *acute toxic encephalopathy (improving) -started on high dose of thiamine due to concern for Wernicke's -he is oriented to place, time, says he knows he is here because he can't walk *severe alcohol use disorder -CIWA -he said he quit drinking a few weeks ago-is tremulous and tachycardic *VHD w hx of s/p AVR and then TAVR *anxiety -chronically on Klonopin *hypomagnesia -electrolyte protocol *hyponatremia *alcohol hepatitis -LFT's are very elevated *Heterogeneous bone marrow in the lumbar spine and sacrum - Will need further f/u in regards to this. *plan: supportive care. Suspect he will need a SNF, will cont high dose thiamine. Subjective: Feeling better. Still can't walk. No pain. Some confusion. Objective: Vital Signs Temp Pulse Resp BP Pulse Ox 37.1 C 89 16 106/68 93 02/03/18 12:18 02/03/18 12:18 02/03/18 12:18 02/03/18 12:18 02/03/18 12:18 Laboratory Results 02/03/18 05:47 02/03/18 05:47 02/02/18 02/03/18 02/04/18 05:59 05:59 05:59 Intake Total 1200 3120 Output Total 1600 Balance 1200 1520 PT 14.0 SEC (12.0-15.0) 02/01/18 18:10 INR 1.06 (0.83-1.16) 02/01/18 18:10 - Physical Exam Constitutional: chronically ill appearing, uncomfortable, cachectic Eyes: PERRL, anicteric sclera, EOMI Ears, Nose, Mouth, Throat: moist mucous membranes, hearing normal, ears appear normal Cardiovascular: regular rate and rhythym, No JVD, No edema Respiratory: no respiratory distress, no rales or rhonchi, reduced air movement Gastrointestinal: normoactive bowel sounds, No tenderness, No ascites Skin: warm, normal color, No mottled Musculoskeletal: muscular tenderness, abnormal gait, generalized weakness Neurologic: AAOx3 Psychiatric: not anxious, thought process linear, poor insight, poor judgement, poor memory ICD10 Worksheet Patient Problems: Problems Problem Status Onset Acute decompensated heart failure Acute Lung nodule Acute Anemia secondary to alcohol Acute Hypomagnesemia Acute Weakness Acute
[2018-02-03] MEDS: ATORVASTATIN CALCIUM 10 MG TAB PO SCH (21:15)
[2018-02-04] MEDS: THIAMINE HCL 500 MG in NS 100 ML IV SCH ×3 (05:13→22:08)
[2018-02-04 05:28] LABS: PLATELET COUNT 77 10^3/uL (150-400)
[2018-02-04] MEDS ORDERED: POTASSIUM CL 10 MEQ TAB PO ONE ×2 (07:40→19:28)
[2018-02-04] MEDS ORDERED: CALCIUM GLUCONATE 50 ML IV ONE (07:42)
[2018-02-04] MEDS ORDERED: MAGNESIUM SULF 2 GM/WATER 50 ML IV ONE (07:53)
[2018-02-04] MEDS: MULTIVITAMINS 1 EACH TAB PO SCH (08:29)
[2018-02-04] MEDS: ASPIRIN 81 MG CHEWABLE TAB PO SCH (08:29)
[2018-02-04] MEDS: FOLIC ACID 1 MG TAB PO SCH (08:29)
[2018-02-04] MEDS: oxyCODONE IR 5 MG TAB PO PRN (08:42)
[2018-02-04] MEDS: NS 1,000 ML IV SCH ×2 (11:45→22:08)
--- NOTE | 2018-02-04 13:53 | HOSPPROG ---
Hospitalist Progress Note Assessment/Plan: 67 yo M with hx of VHD, hx of aortic valve replacement and degeneration with subsequent TAVR, as well as heavy etoh abuse presenting with inability to walk for the last couple of days and confusion. Patient notes that he elected to stop drinking last week and [facility] himself in [facility]. First encounter, chart reviewed. D/W RN. *gait instability -multifactorial including concern for Wernicke's encephalopathy, poor nutrition -Don said he is unable to walk *acute toxic encephalopathy (improving) -started on high dose of thiamine due to concern for Wernicke's -he is oriented to place, time, says he knows he is here because he can't walk *severe alcohol use disorder -CIWA -he said he quit drinking a few weeks ago-is tremulous and tachycardic *VHD w hx of s/p AVR and then TAVR *anxiety -chronically on Klonopin *hypomagnesia -electrolyte protocol *hyponatremia *alcohol hepatitis -LFT's are very elevated *Heterogeneous bone marrow in the lumbar spine and sacrum - Will need further f/u in regards to this. *plan: supportive care. Suspect he will need a SNF, will cont high dose thiamine. Hopefully DC in am if doing better Subjective: C/O throwing up this am. Still feels withdrawl is an issue. Objective: Vital Signs Temp Pulse Resp BP Pulse Ox 37.0 C 102 H 16 103/67 93 02/04/18 12:00 02/04/18 12:00 02/04/18 12:00 02/04/18 12:00 02/04/18 12:00 Laboratory Results 02/04/18 05:12 02/04/18 05:12 02/03/18 02/04/18 02/05/18 05:59 05:59 05:59 Intake Total 3120 1855 Output Total 1600 4800 Balance 1520 -2945 PT 14.0 SEC (12.0-15.0) 02/01/18 18:10 INR 1.06 (0.83-1.16) 02/01/18 18:10 - Physical Exam Constitutional: not in pain, chronically ill appearing, No obese Eyes: PERRL, anicteric sclera Ears, Nose, Mouth, Throat: moist mucous membranes, hearing normal Cardiovascular: No JVD, No edema Respiratory: no respiratory distress, reduced air movement Gastrointestinal: normoactive bowel sounds, No tenderness, No ascites Skin: warm, normal color Musculoskeletal: pain with ROM, muscular tenderness, abnormal gait, generalized weakness Neurologic: AAOx3 Psychiatric: not anxious, not encephalopathic, poor insight, poor judgement, poor memory ICD10 Worksheet Patient Problems: Problems Problem Status Onset Acute decompensated heart failure Acute Lung nodule Acute Anemia secondary to alcohol Acute Hypomagnesemia Acute Weakness Acute
[2018-02-04] MEDS: ATORVASTATIN CALCIUM 10 MG TAB PO SCH (20:02)
[2018-02-04] MEDS: HYDROCODONE/APAP 5/325 TAB PO PRN (20:03)
[2018-02-05] MEDS: THIAMINE HCL 500 MG in NS 100 ML IV SCH (05:29)
[2018-02-05] MEDS ORDERED: MAGNESIUM SULF 1 GM/DEXTROSE 100 ML IV ONE (07:53)
[2018-02-05] MEDS ORDERED: CALCIUM GLUCONATE 50 ML IV ONE (08:15)
[2018-02-05] MEDS: ASPIRIN 81 MG CHEWABLE TAB PO SCH (08:38)
[2018-02-05] MEDS: MULTIVITAMINS 1 EACH TAB PO SCH (08:38)
[2018-02-05] MEDS: FOLIC ACID 1 MG TAB PO SCH (08:38)
--- NOTE | 2018-02-05 09:04 | PDIAF ---
- Diagnosis Diagnosis: AMS Code Status: Full Code - Medication Management Discharge Medications: electronically signed and located in the Home Medication List. PICC Care - Routine: N/A - Orders Services needed: Registered Nurse, Physical Therapy, Occupational Therapy Diet Recommendation: no restrictions on diet - Follow Up Care Current Providers and Referrals: Reuben Lopez PA [Primary Care Provider] - As per Instructions
[2018-02-05] MEDS: HYDROCODONE/APAP 5/325 TAB PO PRN (09:06)
--- NOTE | 2018-02-05 11:49 | ASDISCHSUM ---
Discharge Information Plan Status:SNF Medically Cleared to Leave:02/04/2018 Discharge Date:02/04/2018 CM D/C Disposition: ADT D/C Disposition:Halfway Facility Projected Discharge Date:02/05/2018 11:00 AM Transportation at D/C: Discharge Delay Reason: Follow-Up Date:02/05/2018 11:00 AM Discharge Slot: Final Diagnosis: Placement Information Referral Type:*Senior Living/SNF Referral ID:[id number] Provider Name:Asha Laughlin Address 1:[address] Phone Number: Address 2: Fax Number: [facility]:Emil Selection Factors: State:[place] Patient Contact Information Contact Name:MARCELLUS Relationship:Son Address:[address] [facility] [facility] City:[facility] Phone: State/Zip Code:[place] [address] Email: Financial Information Financial Class:Medicare Primary Plan Desc:MEDICARE INPATIENT Primary Plan Number:[id number] Secondary Plan Desc:AARP/MDR SUPPLEMENT Secondary Plan Number:[id number] Assessment Information [facility] CM Progress Note CM Note CM Note Notes: Pt presented to the ED via EMS for ETOH detox, leg weakness and difficulty ambulating. Pt admitted for confusion, weakness, hypomagnesemia, and alcoholic anemia. Pt's PMH includes CAD, CHF, CABG, VHD, TAVR, HLD, HTN, PUD, hernia repairs x4, ETOH abuse, anxiety, and restless leg syndrome. Pt coming from [facility]. Pt was recently in the ED on 01/30/18. Spoke w/Cathy at [facility] and she states that pt has been at detox all day yesterday and last night. Per Cathy, pt was incontinent of urine and stool numerous times throughout his stay at detox. Pt's twin sons, Farhan ([phone]) and Gabriele ([phone]) later arrived to the ED. Pt gave verbal permission to provide them with information/updates regarding pt's current status, admission and POC. Spoke w/Farhan (lives in [place]) and Gabriele (lives in [place]) re:concerns for pt's ability to return home safely due pt's gait instability, incontinence and confusion due to possible Wernicke's or toxic encephelopathy Farhan and Gabriele state that they haven't seen the pt "in about a month" but it also sounds like one of them saw him about a week ago and that the pt was able to ambulate independently at that time. 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 One of pt's roommates/tenants is Pete ([phone]) and "is kind of a caregiver and spends the most time with him and knows the most about how things are going at home" per Farhan and Gabriele. Farhan and Gabriele say Pete has Pt also has a daughter, Imelda Arguello ([phone]) who lives in [place] and is involved. Not sure if pt has [facility] paperwork completed. Pt's PCP is listed as AJAY Jackson at [facility] ([phone]). This CM spoke renata/Dulce Maria at [facility] and she states the last time the pt was seen in their office was August 2015. It is unclear when the last time the pt saw a financial operations analyst. Pt was admitted to [facility] in June 2017. Exact DC needs TBD. PT/OT/HOSPITALITY RECRUITER evals pending. CM to follow. Date Signed: 02/01/2018 07:12 PM Electronically Signed By:Faith Almaraz RN JARROD JARROD Acuity / Level of Answers: Yes Care: Did the patient have an inpatient admission? Comorbidities - select Answers: Congestive heart failure all that apply Coronary Artery Disease Opioid dependence / Chronic pain Peptic ulcer disease Other Notes: Chronic back pain, HTN, HLD, VHD, CA BG, TAVR, colon polyps, hernia repair x 4 # of Emergency department Answers: 1-2 visits in the last 6 months Social determinants Answers: History of substance abuse (ETOH, street drugs, prescription drugs, etc.) Mental health diagnosis (anxiety, depression, pers onality disorders, etc.) Score: 21 Date Signed: 02/01/2018 06:25 PM Electronically Signed By:Faith Almaraz RN [facility] Progress Note CM Note CM Note Notes: Therapies are recommending SNF. CM met w/ pt for dispo planning. Pt is agreeable to referrals being sent to SNF. CM provided pt w/ senior blue book. CM to follow. Plan: SNF Date Signed: 02/02/2018 02:12 PM Electronically Signed By:JUSTINE Castrejon [facility] Progress Note CM Note MA[facility] Note Notes: Pts case discussed w/ Maria Elena Esquivel Np. Pt has been accepted at [facility]. CM notified pt of this. Pt wants to see how he will do in the next few days. CM to follow. Plan: TBD Date Signed: 02/03/2018 02:18 PM Electronically Signed By:JUSTINE Castrejon Case Management Discharge Plan Note Case Management Discharge Discharge Order Complete? Answers: Yes Patient to Obtain Answers: Other Notes: [facility] Medications Transportation Arranged Answers: Other Notes: Natalia w/c transport Transport will Pick (Date 02/05/2018 01:30 PM & Time) EMTALA Complete Answers: No Case Management Transport Answers: No Form Complete Faxed Final Orders Answers: Yes Agency/Facility Transfer Answers: Yes Report Printed & Faxed to Receiving Agency Family Notified Answers: No Discharge Comments Notes: Pts case discussed w/ Maria Elena Esquivel NP and IRENE Mcgrath. CM met w/ pt for dispo planning. Pt has chosen to d/c to [facility]. CM provided pt w/ address and phone number for [facility] per his request. Pt reports that his daughter may visit him there. DC orders sent. Ramila will call to give report. CM available for changes. Plan: [facility] Date Signed: 02/05/2018 11:48 AM Electronically Signed By:JUSTINE Castrejon Intervention Information Intervention Type:*Incorrect Registration Date of Service:02/01/2018 06:05 PM Patient Type:Observation Staff Member:Blossom Cano Hours: Discipline: Severity: Comment: Intervention Type:*IM-Signed Date of Service:02/05/2018 09:54 AM Patient Type:Inpatient Staff Member:Naz Clark Hours: Discipline: Severity: Comment:
[2018-02-05 12:40] VITALS: BP 121/71
[2018-02-05] MEDS: oxyCODONE IR 5 MG TAB PO PRN (13:24)
--- NOTE | 2018-02-05 14:16 | GDS ---
DISCHARGE DIAGNOSES: 1. Gait instability. 2. Acute toxic encephalopathy. 3. Severe alcohol use disorder. 4. Anxiety. 5. Hypomagnesemia. 6. Hyponatremia. 7. Alcoholic hepatitis. 8. Heterogeneous bone marrow in the lumbar spine and sacrum. STUDIES AND PROCEDURES DONE: 1. Lumbar spine MRI. 2. Chest x-ray. PHYSICAL EXAM: GENERAL: The patient is alert. VITAL SIGNS: Afebrile at 37.2. Pulse is 96. Respi ratory rate is 12. Blood pressure is 121/71. He is saturating 92% on 2 L. I have seen and evaluate d the patient on the day of discharge. HOSPITAL COURSE: The patient is a 68-year-old male who presented to the hospital with complaints of confusion. He was evaluated and diagnosed with: 1. Acute toxic encephalopathy. It was in the setting of alcohol withdrawal. There is severe concer n for Wernicke's. The patient has cold turkey his alcohol consumption. He has worked with Physical Therapy, as well as Occupational Therapy. However, he is yet to return to his baseline physical capa bilities or mental capabilities. He will require snf facility. 2. Severe alcohol use disorder. This has been a long ongoing problem for the patient. He is placed on the CINJ with continued supportive management, and he is eager to discontinue his further alcohol consumption. 3. Gait instability. This is in the setting of acute toxic encephalopathy. This is improving but r equires further therapy. 4. Anxiety. The patient chronically takes Klonopin and drinks alcohol for his anxiety. He has, in the past, been well managed on medications. However, he has discontinued most of his medications and has referred to alcohol. 5. Hypomagnesemia. We replaced this during this hospitalization. 6. Hyponatremia. This has resolved. 7. Alcoholic hepatitis. This is stable. 8. Abnormal bone marrow in the lumbar spine and sacrum. The patient has been educated with regard t o this. However, he will require further followup in the outpatient setting and further testing for the etiology of this. 9. Pancytopenia. This is in the setting of severe alcohol consumption and is stable. DISPOSITION: The patient will be discharged to snf facility for further rehabilitation a nd management. DISCHARGE MEDICATIONS: Please refer to EMR form. FOLLOWUP: Followup will be with the patient's primary care physician, Dr. Aracelis Forte. Further testing of his lumbar spine and sacrum will be needed, as well as further management for his anxiety. I spent greater than 35 minutes in the care, coordination, and management of this patient's dispositi on. /[id number]/MODL
== END 2018-02-05 13:54 | DRG 897 ==
LOC: EDUNIT# → F3N 15:46 → UNDOADMOB 15:46 → OBSVTOIN 16:05 → F3E 17:42
PROVIDERS: ADMIT Internal Medicine; ATTEND Internal Medicine
PROC: HZ2ZZZZ Detoxification Services for Substance Abuse Treatment (ICD-10-PCS; principal; 2018-02-01)
DX: F10.26 Alcohol dependence with alcohol-induced persisting amnestic disorder (principal); F10.231 Alcohol dependence with withdrawal delirium; E83.42 Hypomagnesemia; E87.1 Hypo-osmolality and hyponatremia; K70.10 Alcoholic hepatitis without ascites; D52.0 Dietary folate deficiency anemia; M51.37 Other intervertebral disc degeneration, lumbosacral region; F41.9 Anxiety disorder, unspecified; R29.6 Repeated falls; I10 Essential (primary) hypertension; E78.5 Hyperlipidemia, unspecified; M85.88 Other specified disorders of bone density and structure, other site; F17.210 Nicotine dependence, cigarettes, uncomplicated; Z95.3 Presence of xenogenic heart valve
CPT/HCPCS: 96365; 97116-GP; 97161-GP; 97165-GO; 97530-GP; 97535-GO; G0480; G8978-GP-CK; G8979-GP-CI; G8987-GO-CK; G8989-GO-CI; J0610; J2060; J3411; J3475